=== PATIENT | male | born 1965 | race African-American/Black ===

== ENCOUNTER 2020-04-24 05:38 | Emergency (ER) | payer SELFPAY ==
[~2020-04-24] VITALS: Ht 167.6 cm; Wt 102.1 kg
[2020-04-24] MEDS ORDERED: ORPHENADRINE CITRATE 30 MG/ML VIAL IM ONE (05:45)
[2020-04-24] MEDS ORDERED: TRAMADOL HCL 50 MG TAB PO ONE (06:00)
--- NOTE | 2020-04-24 06:13 | Emergency Department Note ---
History of Present Illnes History of Present Illness Chief Complaint: Back Pain History of Present Illness This is a 54 year old male PRESENTS TO ED WITH PAIN TO RIGHT LOWER BACK X3 WEEKS; PT HAS BEEN SEEN BY PCP FOR SAME STATED PAIN, HAD CT ABD/PELVIS WITH NO SIGNIFICANT FINDINGS, WAS RX'D GABAPENTIN AND FLEXERIL; PT DENIES ANY DIFFICULTY URINATING; REPORTS PAIN WITH BENDING OVER, ROLLING OVER AND WHEN HE HAS A BOWEL MOVEMENT . Historian: Patient Arrival Mode: Car [employer] Service Manager Required: No Onset (how long ago): week(s) (3) Location: RIGHT LOW BACK/SIDE Quality: PAIN Radiation: Reports non-radiation Severity: severe Onset quality: sudden Duration (how long): week(s) (3) Timing of current episode: constant Progression: worsening Chronicity: chronic Context: Denies recent illness, Denies recent surgery, Denies trauma/injury Relieving factors: none Exacerbating factors: movement Associated symptoms: Reports denies other symptoms Treatments prior to arrival: none (JUSTUS LOPEZ MD) Past Medical/Family History Physician Review I have reviewed the patient's past medical and family history. Any updates have been documented here. (JUSTUS LOPEZ MD) Past Medical History Recent Fever: No Clinical Suspicion of Infectio: No New/Unexplained Change in Ment: No Past Medical History: Hypertension, GERD, Chronic Back Pain, Osteoarthritis Past Surgical History: Back Surgery (JUSTUS LOPEZ MD) Social History Smoking Cessation: Never Smoker Counseling Performed: No Alcohol Use: None Any Illegal Drug Use: No (JUSTUS LOPEZ MD) Other Any Pre-Existing Lines (PICC,: No (JUSTUS LOPEZ MD) Review of Systems Review of Systems Constitutional: Reports no symptoms EENTM: Reports no symptoms Cardiovascular: Reports no symptoms Respiratory: Reports no symptoms Gastrointestinal: Reports no symptoms Genitourinary: Reports no symptoms Musculoskeletal: Reports as per HPI Integumentary: Reports no symptoms Neurological: Reports no symptoms Psychological: Reports no symptoms Endocrine: Reports no symptoms Hematological/Lymphatic: Reports no symptoms (JUSTUS LOPEZ MD) Physical Exam Related Data Allergies: Coded Allergies: NSAIDS (Non-Steroidal Anti-Inflamma (Verified Allergy, Intermediate, 04/24/20) acetaminophen (Verified Allergy, Intermediate, 04/24/20) ibuprofen (Verified Allergy, Intermediate, 04/24/20) iodine (Verified Allergy, Intermediate, 04/24/20) Triage Vital Signs Vital Signs Date Time Temp Pulse Resp B/P (MAP) Pulse Ox O2 Delivery O2 Flow Rate FiO2 04/24/20 05:42 98.2 122 19 175/124 100 Room Air Vital signs reviewed: Yes (JUSTUS LOPEZ MD) Physical Exam CONSTITUTIONAL Constitutional: Present well-developed, Present well-nourished, Present distressed (MILD) HENT HENT: Present normocephalic, Present atraumatic, Present oropharynx clear/moist, Present nose normal HENT L/R: Present left ext ear normal, Present right ext ear normal EYES Eyes: Reports PERRL, Reports conjunctivae normal NECK Neck: Present ROM normal PULMONARY Pulmonary: Present effort normal, Present breath sounds normal CARDIOVASCULAR Cardiovascular: Present regular rhythm, Present heart sounds normal, Present capillary refill normal, Present tachycardia (115) GASTROINTESTINAL Abdominal: Present soft, Present nontender, Present bowel sounds normal GENITOURINARY Genitourinary: Present exam deferred SKIN Skin: Present warm, Present dry MUSCULOSKELETAL Musculoskeletal: Present ROM normal, Present tenderness (RIGHT LOWER BACK MILD TO PALPTAION) NEUROLOGICAL Neurological: Present alert, Present oriented x 3, Present no gross motor or sensory deficits PSYCHOLOGICAL Psychological: Present mood/affect normal, Present judgement normal (JUSTUS LOPEZ MD) Assessment & Plan Medical Decision Making MDM PT WITH RIGHT BACK/SIDE PAIN FOR THREE WEEKS, CT ABD/PELVIS WO, UA ORDERED TO EVAL FOR HEMATURIA, UTI, KIDNEY STONE NORFLEX 60 MG IM ORDERED TRAMADOL 50MG PO ORDERED [address] PERALTA CT AND UA PENDING (JUSTUS LOPEZ MD) Reassessment Reassessment PT SEEN AND EXAMINED, HAS 3 WEEKS OF RIGHT SIDED PAIN, EXAM UNREMARKABLE EXCEPT POINT TENDERNESS OVER RIGHT LOWER RIBS AND ICS's, ABDOMEN EXAM BENIGN, NO CVAT, UA NEGATIVE, CT NEGATIVE DC WITH TRAMADOL #12, PREDNISONE 40 MG PO X 5 DAYS, LIDODERM PATCHES (LEAH PERALTA MD) Assessment & Plan Final Impression: (1) Back pain (JUSTUS LOPEZ MD) Final Impression: (1) Back pain (2) Costochondritis (LEAH PERALAT MD) Depart Disposition: HOME, SELF-CARE Last Vital Signs Date Time Temp Pulse Resp B/P (MAP) Pulse Ox O2 Delivery O2 Flow Rate FiO2 04/24/20 05:42 98.2 122 19 175/124 100 Room Air (JUSTUS LOPEZ MD) Medications in the ED Orphenadrine Citrate 60 mg ONCE ONCE IM Last administered on 04/24/20at 05:50; Admin Dose 60 MG; Start 04/24/20 at 05:45; Stop 04/24/20 at 05:47; Status DC Tramadol HCl 50 mg ONCE ONCE PO Last administered on 04/24/20at 05:50; Admin Dose 50 MG; Start 04/24/20 at 06:00; Stop 04/24/20 at 06:01; Status DC (JUSTUS LOPEZ MD) JUSTUS LOPEZ MD Apr 24, 2020 06:13 LEAH PERALTA MD Apr 24, 2020 08:01
--- OUTSIDE RECORDS SUMMARY | 2020-04-24 06:24 | XMS REPORT | Continuity of Care Document ---
Author Author [employer] LOUISE [place] [employer] Address Unknown Phone Unavailable Care Team Providers Care Order Entry Clerk Name Role Phone [employer] Unavailable Un available Problems Problem Status Onset Date Classification Date Reported Comments Source Encounter to establish care with new doctor Active Diagnosis 10/15/2016 Enayet Rahim Migraine with aura and without status mi grainosus, not intractable Active Prob pedro 12/10/2016 Enayet Rahim YURI (obstructive sleep apnea) Active Problem Enayet Rahim Neuropathy Active Problem 12/10/2016 Enayet Rahim Migraine aura without headache Active Problem Enayet Rahim Essential hypertension Active Problem 12/10/2016 Enayet Rahim Low back pain at multiple sites Active Problem Enayet Rahim 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 Active Prob pedro 12/10/2016 Enayet Rahim 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 Active Problem 12/10/2016 Enayet Rahim Cervical radiculopathy Active Problem 12/10/2016 Enayet Rahim Hearing deficit, bilateral Act micheal Diagnosis 0 10/15/2016 Enayet Rahim Urticaria, chronic Active Diagnosis 10/15/2016 Enayet Rahim Gastroesophageal reflux disease without esophagitis Active Problem 12/09/2016 Enayet Rahim Hatto-edkav-[id number], subsequent encounter Active Diagnosis 12/10/2016 Enayet Rahim Coronary artery disease involving ione heart without angina pectoris, unspecified vessel or lesion type Active Diagnosis 0 12/10/2016 Enayet Rahim Urticaria Active Diagnosis 12/05/2016 Enayet Rahim Medications Medication Details Route Status Patient Instructions Ordering Provider Order Date Source Amoxicillin 1 capsule Orally Active 250 MG Orally every 8 h [facility] 12/04/2016 Enayet Rahim MethylPREDNISolone as directed Orally Active 4 MG Orally As directed [facility] 12/03/2016 Edward Thomason EpiPen 2-Azael as directed Injection Active 0.3 MG/0.3ML Injection as directed [facility] 11/04/2016 Edward Thomason Omeprazole 1 capsule Orally Active 40 MG Orally Once a day [facility] 10/31/2016 Edward Thomason Losartan Potassium 1 tablet Orally Active 100 MG Orally Once a day [facility] 10/31/2016 Edward Thomason Ativan 1 tablet as needed Orally Active 1 MG Orally Twice a day [facility] 11/17/2014 Edward Thomason Lipitor 1 tablet Orally Active 20 mg Orally Once a day [facility] 11/08/2014 Edward Thomason Nasacort AQ 1 puff in each nos tril Nasally Active 55 MCG/ACT Nasally Once a day [facility] 09/28/2014 Edward Oseguerahim Nasacort AQ 1 puff in each nos tril Nasally Active 55 MCG/ACT Nasally Once a day [facility] 07/28/2014 Edward Thomason HydrOXYzine HCl 1 tablet Orally Active 25 MG Orally Three time s a day [facility] 04/04/2014 Edward Thomason Diazepam 1 tablet as needed Orally Active 5 MG Orally Once a day [facility] 11/15/2013 Edward Thomason Ambien 1 tablet at bedtime Orally Active 5 MG Orally Once a day [facility] 09/13/2013 Edward Royalm Diltiazem HCl ER 1 capsule on an empty stomach in the morning Orally Active 240 MG Orally Once a day [facility] 08/25/2013 Entrang Oseguerahim Diltiazem HCl ER 1 capsule on an empty stomach in the morning Orally Active 360 Orally Once a day [facility] 08/25/2013 Edward Thomason Clonidine HCl 1 tablet at bedt demetri Orally Active 0.1 MG Orally twice a day (bid) [facility] 06/30/2013 Edward Royalm EPINEPHrine HCl (Anaphylaxis) as directed Intramuscular Active 0.15 MG/0.3ML (1:2000) Intramuscular as needed (prn) [facility] 06/30/2013 Enkileyet Rahim EPINEPHrine HCl (Anaphylaxis) as directed Intramuscular Active 0.15 MG/0.3ML (1:2000) Intramuscular as needed (prn) [facility] 06/30/2013 Edward Thomason HydrOXYzine HCl 1 tablet Orally Active 25 MG Orally twice a da y (bid) [facility] 04/26/2013 T[facility] Lisinopril 1 tablet Orally Active 40 MG Orally Once a day [facility] 03/01/2013 [facility] Hydrochlorothiazide 1 tablet Orally Active 25 MG Orally Once a day [facility] Doxepin HCl 2 tablet at bedtime Orally Active 75 MG Orally Once a day [facility] Triamterene-HCTZ 1 capsule Orally Active 37.5-25 MG Orally once a day [facility] Atenolol 1 tablet Orally Active 50 MG Orally Once a day [facility] Ranexa 1 tablet Orally Active 1000 MG Orally Twice a day [facility] Viky [facility] Nitro-Dur 1 patch to skin mony ve after 12 hours Transdermal Active 0.2 MG/HR Transdermal Once a day [facility] Aspirin 1 tablet Orally Active 81 MG Orally Once a day [facility] Viky esvin [facility] Atorvastatin Calcium 1 tablet Orally Active 40 MG Orally Once a day [facility] Omeprazole 1 capsule Orally Active 20 mg Orally twice a da y (bid) [facility] Plavix 1 tablet Orally Active 75 MG Orally Once a day [facility] Propranolol HCl 0.5 tablet Orally Active 60 MG Orally once a day [facility] Edward Royal Allergies, Adverse Reactions, Alerts Substance Category Reaction Severity Reaction type Status Date Reported Comments Source Vicodin Adverse Reaction Info Not Available Adverse Reaction Active 10/31/2016 Edward Thomason Tylenol Adverse Reaction Info Not Available Adverse Reaction Active 10/31/2016 Edward Thomason Tramadol & Dietary Manage Prod Adverse Reaction Info Not Available Adverse Reaction Active 10/31/2016 Edward Royal Morphine Sulfate Adverse React ion Info Not Available Adverse Reaction Active 10/31/2016 Edward Thomason Ibuprofen Adverse Reaction Info Not Available Adverse Reaction Active 10/31/2016 Edward Thomason Aspirin Adverse Reaction Info Not Available Adverse Reaction Active 10/31/2016 Edward Oseguerainmaria Immunizations No Data Provided for This Section Results No Data Provided for This Section Pathology Reports No Data Provided for This Section Diagnostic Reports No Data Provided for This Section Consultation Notes No Data Provided for This Section Discharge Summaries No Data Provided for This Section History and Physicals No Data Provided for This Section Vital Signs Vital Sign Value Date Comments Source Weight 257 12/03/2016 Enayet Rahim Height 66 0 12/03/2016 Enayet Rahim Temperature Oral (F) 98.0 F 12/03/2016 Enayet Rahim Diastolic (mm Hg) 100 12/03/2016 Enayet Rahim Systolic (mm Hg) 167 12/03/2016 Enayet Rahim Weight 254 11/20/2016 Enayet Rahim Height 66 0 11/20/2016 Enayet Rahim Temperature Oral (F) 98.0 F 11/20/2016 Enayet Rahim Diastolic (mm Hg) 90 11/20/2016 Enayet Rahim Systolic (mm Hg) 145 11/20/2016 Enayet Rahim Weight 249 10/31/2016 Enayet Rahim Height 66 0 10/31/2016 Enayet Rahim Temperature Oral (F) 97.9 F 10/31/2016 Enayet Rahim Diastolic (mm Hg) 91 10/31/2016 Enayet Rahim Systolic (mm Hg) 165 10/31/2016 Enayet Rahim Weight 201 10/13/2016 Enayet Rahim Height 66 0 10/13/2016 Enayet Rahim Temperature Oral (F) 97.6 F 10/13/2016 Enayet Rahim Diastolic (mm Hg) 93 10/13/2016 Enayet Rahim Systolic (mm Hg) 136 10/13/2016 Enayet Rahim Encounters Location Location Details Encounter Type Encounter Number Reason For Visit Attending Provider ADM Date DC Date Status Source Edward Thomason MD, PA lower lumbar pain [id number] 10/13/19 17 10/13/2016 Edward Thomason MD, PA lower lumbar pain [id number] 10/13/19 17 10/13/2016 Edward Thomason MD, PA Unknown [id number] 10/21/19 17 10/21/2016 Edward Thomason Procedures No Data Provided for This Section Assessment and Plan No Data Provided for This Section Plan of Care No Data Provided for This Section Social History Social History Date Source Social History ElementQualifiersDate Rep orted Tobacco Use: . Are you a: never smoker Oct 13, 2016 Do you have pets? . Status: Yes, Type: Turtle(s) Oct 13, 2016 Marital Status: . Oct 13, 2016 Caffeine intake? . Status: Yes, What type: Chocolate Oct 13, 2016 Do you exercise? . Answer: Yes, Type: walking Oct 13, 2016 Do you drink alcohol? . Status: Yes, Type: Liquor Oct 13, 2016 Travel outside [place]: . no Oct 13, 2016 10/13/2016 Edward Thomason Family History No Data Provided for This Section Advance Directives No Data Provided for This Section Functional Status No Data Provided for This Section
--- OUTSIDE RECORDS SUMMARY | 2020-04-24 06:24 | XMS REPORT | Continuity of Care Document ---
Author Author [facility] t Organization [facility] Address [address] [place] [address] Phone Unavailable Care Team Providers Care Refrigeration Tech Name Role Phone Jerman KATZ, Clare Connor PCP Jerman KATZ, Clare Connor Attphys Doctor, [facility] Attphys Unavailable Meri KATZ, Jeremias Attphys Stephanie KATZ, T Abner Attphys Klaudia ARMENDARIZ, [facility] Attphys Unavailable Armani KATZ, Rocky Wren Attphys Dori SIMMS, R Chace Attphys Payers Payer Name Policy Type Policy Number Effective Date Expiration Date S sue [place] [employer] [employer] [employer] [id number], [place] [address] xxxxxx 2019 00:00:00 2020 23:59:59 [facility] [employer]AN[employer]CIAL ASSISTANCE PROGRAMxxx [id number] [place] [address] xxxxxx 2019 00:00:00 2021-0 3-05 23:59:59 [facility] Problems Condition Name Condition Details Condition Category Status Onset Date Resolution Date Last Treatment Date Treating Clinician Comments Source Diet-controlled diabetes mellitus Diet-controlled diabetes melli tus Disease Active 2018-05-11 00:00:00 [facility] Hip impingement syndrome Hip impingement syndrome Disease Acti ve 2018-05-11 00:00:00 [facility] Essential hypertension, benign Essential hypertension, benign Disea se Active 2017-03-25 00:00:00 [facility] ealth Type 2 diabetes mellitus without complic ation, without long-term current use of insulin Type 2 diabetes mellitus without complic ation, without long-term current use of insulin Disease Active 2017-03-25 00:00:00 [facility] HTN (hypertension) HTN (hypertension) Disease Active 2012-10-14 00:00:0 0 [facility] Neck pain Neck pain Disease Active 2011-04-08 00:00:00 [facility] Encounter to establish care with new doctor Encounter to establish care with new doctor Active Diagnosis 10/15/2016 Edward Royalm Diagnosis Active 2016-10-15 05:14:15 Mitra Jara Migraine with aura and without status migrainosus, not intractable Migraine with aura and without status migrainosus, not intractable Active Problem 12/10/2016 Enayet Rahim Problem Active 2016-12-10 04:1 1:03 Karthik Jara YURI (obstructive sleep apnea) YURI (obstructive sleep apnea) Active Problem 12/10/2016 Enayet Rahim Problem Active 2016-12-10 04:11:03 Karthik Jara Neuropathy Neur opathy Active Problem 12/10/2016 Enayet Rahim Problem [facility] 2016-12[facility]10 [facility] Essential hypertension Esse ntial hypertension Active Problem 12/10/2016 Enayet Rahim Problem Active 2016-12-10 04:11:03 Karthik Jara Low back pain at multiple sites Low back pain at multiple sites Active Problem 12/10/2016 Enayet Rahim Problem Active 2016-12-10 04:11:03 Karthik Jara Sciatica of right side associated with disorder of lum bar spine Sciatica of right side associated with disorder of lumbar spine Active Problem 12/10/2016 Enayet Rahim Problem Active 2016-12-10 04:1 1:03 Karthik Jara 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 Active Problem 12/10/2016 Edward Thomason Problem Active 2016-12-10 04:11:03 Karthik Jara Cervical radiculopathy Cerv ical radiculopathy Active Problem 12/10/2016 Edward Thomason Problem Active 2016-12-10 04:11:03 Karthik Marek Hearing deficit, bilateral Hea ring deficit, bilateral Active Diagnosis 10/15/2016 Edward Thomason Diagnosis Active 2016-10-15 05:14:15 Karthik Marke Urticaria, chronic Urti caria, chronic Active Diagnosis 10/15/2016 Edward Thomason Diagnosis Active 2016-10-15 05:14:15 Karthik Marek Gastroesophageal reflux disease without esophagitis Gastroesophageal reflux disease without esophagitis Active Problem 12/09/2016 Edwrad Thomason Problem Active 2016-12-09 [id number], subsequent encounter Kuump-vibgx-ctuomjfer, subsequent encounter Active Diagnosis 12/10/2016 Edward Thomason Diagnosis Active 2016-12-10 04:11:03 Karthik [place] Coronary artery disease involving [place] heart without angina pectoris, unspecified vessel or lesion type Coronary artery disease involving [place] heart without angina pectoris, unspecified vessel or lesion type Active Diagnosis 12/10/2016 Edward Thomason Diagnosis Active 2016-12-10 04:11:03 [facility] Urticaria Urti caria Active Diagnosis 12/05/2016 Edward Thomason Diagnosis Active 2016-12-05 04:10:09 [facility] Knight's esophagus Knight's esophagus Disease Active [facility] Allergies, Adverse Reactions, Alerts Allergy Name Allergy Type Status Severity Reaction(s) Onset Date Inacti ve Date Treating Clinician Comments Source NSAIDS (Non-Steroidal Anti-Inflamma DA Active U 2020-01-25 0 00:00:00 [facility] morphine DA Active U 2020-02-21 00:00:00 [facility] acetaminophen DA Active U 2020-02-21 00:00:00 [facility] ibuprofen DA Active U 2020-02-21 00:00:00 [facility] Celecoxib Propensity to adverse reactions to drug Active Rash 2018-12-06 00:00:00 [facility] Vicodin Vicodin Active Info Not Available 2016-10-31 00:00:00 [facility] Tylenol Tylenol Active Info Not Available 2016-10-31 00:00:00 [facility] Tramadol & Dietary Manage Prod Tramadol & Dietary Manage Prod Activ e Info Not Available 2016-10-31 00:00:00 [facility] Morphine Sulfate Morphine Sulfate Active Info Not Avai lable 2016-10-31 00:00:00 [facility] Ibuprofen Ibuprofen Active Info Not Available 2016-10-31 00:00:00 [facility] Aspirin Aspirin Active Info Not Available 2016-10-31 00:00:00 [facility] Lisinopril Propensity to adverse reactions to drug Active 2011-05-01 00:00:00 DRYNESS [facility] Contrast Propensity to adverse reactions to drug Active Hives 2010-09-15 00:00:00 [facility] Nsaids (Non-Steroidal Anti-Inflammatory Drug) Propensi ty to adverse reactions to drug Active Hives 2010-09-15 00:00:00 Hayden is [facility] Acetaminophen Propensity to adverse reactions to drug Active Hives 2010-09-15 00:00:00 Pt states he had to use an epipe n [facility] Family History Family Member Diagnosis Comments Start Date Stop Date Source Natural daughter Leukemia [facility] Maternal aunt Cancer [facility] th Maternal aunt [facility] Maternal grandmother Heart Hayden is [facility] Natural mother Arthritis [facility] Natural mother Hypertension [facility] Other Bone cancer [facility] Social History Social Habit Start Date Stop Date Quantity Comments Source Sex Assigned At [facility] Exposure to SARS-CoV-2 (event) Not sure [facility] Alcohol intake 2020-02-28 00:00:00 2020-02-28 00:00:00 Current non-drinker of alcohol (finding) [facility] SDOH Food Worry 2018-03-30 00:00:00 2018-03-30 00:00:00 1 [facility] SDOH Food Scarcity 2018-03-30 00:00:00 2018-03-30 00:00:00 1 [facility] TobaccoUse: 2016-10-13 00:00:00 2016-10-13 00:00:00 [facility] Smoking Status Start Date Stop Date Source Never smoker [facility] Medications Ordered Medication Name Filled Medication Name Start Date Stop Da te Current Medication? Ordering Clinician Indication Dosage Frequency Signature (SIG) Comments Components Source gabapentin (NEURONTIN) 100 mg capsule 2020-04-17 00:00:00 Yes Chest wall pain 100mg Take 1 capsule by mouth 3 times daily. [facility] candesartan (ATACAND) 4 mg tablet 2020-04-01 00:00:00 Yes Essential hypertension 8mg QD Take 2 tablets by mouth daily. [facility] hydrOXYzine (ATARAX) 25 mg tablet 2020-02-29 00:00:00 Yes Neck pain Take 1 tablet by mouth 30 minutes before MRI. [facility] methocarbamoL (ROBAXIN-750) 750 mg tablet 2020-02-28 00:00:0 0 Yes Neck pain 750mg Take 1 tablet by mouth 3 times daily as needed for Pain. [facility] mometasone (NASONEX) 50 mcg/actuation nasal spray 2020-02-28 00:00:00 Yes Runny nose 1{spray} QD Use 1 spray in each nostril daily. [facility] hydrOXYzine (ATARAX) 25 mg tablet 2020-02-28 00:00:00 2019 00:00:00 No Neck pain Take 30 minutes before MRI. [facility] atenoloL (TENORMIN) 50 mg tablet 2020-02-20 00:00:00 Yes Essential hypertension 50mg QD Take 1 tablet by mouth daily. [facility] omeprazole (PRILOSEC) 20 mg delayed release capsule 02-19 00:00:00 Yes Knight's esophagus without dysplasia 20mg QD Take 1 ca psule by mouth daily. [facility] buPROPion (WELLBUTRIN XL) 150 mg extended release tablet 2020-02-20 00:00:00 Yes YURI (obstructive sleep apnea) 150mg Take 1 tablet by mouth every morning. [facility] hydrOXYzine (ATARAX) 25 mg tablet 2020-02-13 00:00:00 Yes Chronic urticaria 25mg Take 1 tablet by jian 3 times daily as needed for Itching or Anxiety. [facility] atorvastatin (LIPITOR) 40 mg tablet 2020-02-13 00:00:00 Yes Hyperlipidemia, unspecified hyperlipidemia type 40mg Take 1 tablet by mouth at bedtime nightly For cholesterol. [facility] amLODIPine (NORVASC) 5 mg tablet 2020-01-19 00:00:00 Yes Essential hypertension 5mg QD Take 1 tablet by mouth daily. [facility] metFORMIN (GLUCOPHAGE) 500 mg tablet 2020-01-19 00:00:00 Yes Type 2 diabetes mellitus without complication, without long-term current use of insulin 500mg QD Take 1 tablet by mouth daily (with breakfast). [facility] clopidogreL (PLAVIX) 75 mg tablet 2020-01-19 00:00:00 Yes Coronary artery disease due to lipid rich plaque 75mg QD Take 1 tablet by mouth da brian. [facility] nitroGLYCERIN (NITRO-DUR) 0.2 mg/hr patch 2020-01-19 00:00:0 0 Yes Coronary artery disease due to lipid rich plaque 1{patch} QD Apply 1 Patch to skin as directed daily. [facility] mometasone (NASONEX) 50 mcg/actuation nasal spray 2020-01-19 00:00:00 2020-02-28 00:00:00 No Runny nose 1{spray} QD Use 1 spray in each nostril daily. [facility] atorvastatin (LIPITOR) 40 mg tablet 2020-01-19 00:00:0 0 2020-02-13 00:00:00 No Hyperlipidemia, unspecified hyperlipidemia type 40mg Take 1 tablet by mouth at bedtime nightly For cholesterol. [facility] candesartan (ATACAND) 4 mg tablet 2019-12-21 00:00:00 2019 00:00:00 No Essential hypertension 8mg QD Take 2 tablets by mouth horacio ly. [facility] cetirizine (ZYRTEC) 10 mg tablet 2019-12-05 00:00:00 Yes Chronic urticaria 10mg QD Take 1 tablet by mouth daily. [facility] metFORMIN (GLUCOPHAGE) 500 mg tablet 2019-11-09 00:00: 00 2020-01-18 00:00:00 No Type 2 diabetes mellitus wit hout complication, without long-term current use of insulin 500mg QD Take 1 tablet by mouth daily (with breakfas t). [facility] atenoloL (TENORMIN) 50 mg tablet 2019-10-27 00:00:00 2020-01 00:00:00 No Essential hypertension 50mg QD Take 1 tablet by mouth daily. [facility] mometasone (NASONEX) 50 mcg/actuation nasal spray 2019-10-18 00:00:00 2020-01-19 00:00:00 No Runny nose 1{spray} QD Use 1 Loving by each nostril route daily. [facility] zolpidem (AMBIEN) 10 mg Tab 2019-10-10 00:00:00 Ye s PTSD (post-traumatic stress disorder) 10mg Take 1 tablet by jian th nightly at bedtime as needed for Insomnia Need to see psychiatry for more refill. 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 [facility] buPROPion (WELLBUTRIN XL) 150 mg extended release tablet 2019-10-10 00:00:00 2020-02-20 00:00:00 No YURI (obstructive sleep apnea) 150mg Take 1 tablet by mouth every morning. [facility] ergocalciferol (VITAMIN D2) 1,250 mcg (50,000 unit) capsule 2019-10-04 00:00:00 Yes Vitamin D deficiency [id number] Take 1 cap latricia by mouth weekly. [facility] cloNIDine HCl (CATAPRES) tablet 0.1 mg 6 10:45:00 2019-09-29 10:54:00 No Type 2 diabetes with complication .1mg [facility] tropicamide (MYDRIACYL) 0.5 % ophthalmic solution 2019-09-29 00:00:00 2020-03-28 23:59:00 No Type 2 diabetes with complication 1[dr p] Instill 1 Drop in each eye once as needed for up to 1 dose (for poor retina scan image). [facility] clopidogreL (PLAVIX) 75 mg tablet 2019-09-29 00:00:00 2019 00:00:00 No Coronary artery disease due to lipid rich plaque 75mg QD Take 1 tablet by mouth daily. [facility] amLODIPine (NORVASC) 5 mg tablet 2019-09-29 00:00:00 2019-12 00:00:00 No Essential hypertension 5mg QD Take 1 tablet by mouth daily. [facility] OMEGA-3 FATTY ACIDS (FISH OIL OR) 2019-07-29 10:57:24 Yes Take by mouth. [facility] candesartan (ATACAND) 4 mg tablet 2019-07-29 00:00:00 2019 00:00:00 No Essential hypertension 8mg QD Take 2 tablets by mouth horacio ly. [facility] mometasone (NASONEX) 50 mcg/actuation nasal spray 2019-07-29 00:00:00 2019-10-17 00:00:00 No Runny nose 1{spray} QD Use 1 Loving by each nostril route daily. [facility] tropicamide (MYDRIACYL) 0.5 % ophthalmic solution 2019-07-29 00:00:00 2019-07-29 23:59:00 No Type 2 diabetes josselyn itus without complication, without long-term current use of insulin 1[drp] Instill 1 Drop in each eye once as needed for up to 1 dose (for poor retina scan image). [facility] cetirizine (ZYRTEC) 10 mg tablet 2019-07-08 00:00:00 2019-11 00:00:00 No Chronic urticaria 10mg QD Take 1 tablet by mouth daily. [facility] atorvastatin (LIPITOR) 40 mg tablet 2019-07-06 00:00:0 0 2020-01-18 00:00:00 No Hyperlipidemia, unspecified hyperlipidemia type 40mg Take 1 tablet by mouth at bedtime nightly For cholesterol. [facility] candesartan (ATACAND) 4 mg tablet 2019-07-06 00:00:00 2018 00:00:00 No Essential hypertension 4mg QD Take 1 tablet by mouth harris dotson [facility] cetirizine (ZYRTEC) 10 mg tablet 2019-06-02 00:00:00 2019-06 00:00:00 No Chronic urticaria 10mg QD Take 1 tablet by mouth daily. [facility] metFORMIN (GLUCOPHAGE) 500 mg tablet 2019-05-18 00:00: 00 2019-11-08 00:00:00 No Type 2 diabetes mellitus wit hout complication, without long-term current use of insulin 500mg QD Take 1 tablet by mouth daily (with breakfas t). [facility] mupirocin calcium (BACTROBAN) 2 % topical cream 2019-04-22 0 0:00:00 Yes Skin lesion Q.5D Apply to affected area 2 times daily. [facility] acetaminophen-codeine (TYLENOL #3) 300-30 mg per tablet 2019-04-22 00:00:00 2019-05-02 23:59:00 No Pain 1{tbl} Take 1 tablet by mouth 2 times daily as needed for up to 10 days [facility]. [facility] clind[facility] (CLEOCIN HCL) 300 mg capsule 2019-03 00:00:00 2019-04-29 23:59:00 No Skin lesion 300mg Take 1 capsul e by mouth 3 times daily for 7 days. [facility] cetirizine (ZYRTEC) 10 mg tablet 2019-04-21 00:00:00 2019-05 00:00:00 No Chronic urticaria 10mg QD Take 1 tablet by mouth daily. [facility] atenolol (TENORMIN) 50 mg tablet 2019-04-07 00:00:00 2019-10 00:00:00 No Essential hypertension 50mg QD Take 1 tablet by mouth daily. 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 [facility] CPAP Device 2019-03-18 00:00:00 Yes YURI (obstruct micheal sleep apnea) Use device as directed. Date of Study: 12/22/2017Diagnosis: YURI [id number] SaO2 eli: 85%CPAP Pressure: 12 cm H2O with heated humidifier: Yes with mask (fit to patient) and supplies as needed: Yes; prefers full maskChin Strap: No. [facility] buPROPion (WELLBUTRIN XL) 150 mg extended release tablet 2019-03-18 00:00:00 2019-10-09 00:00:00 No YURI (obstructive sleep apnea) 150mg Take 1 tablet by mouth every morning. [facility] zolpidem (AMBIEN) 10 mg Tab 2019-03-18 00:00:00 2019-10-09 0 0:00:00 No PTSD (post-traumatic stress disorder) 10mg Take 1 tablet by mouth nightly at bedtime as needed for Insomnia. [facility] ealt Miscellaneous Medical Supply Mis 2019-02-25 00:00:00 Yes Primary osteoarthritis of both hips by [facility].(Non -Drug; Combo Route) route Permanent Handicap sticker. [facility] cyclobenzaprine (FLEXERIL) 10 mg tablet 00:00:00 2020-02-28 00:00:00 No Spasm of muscle 10mg Take 1 ta blet by mouth 2 times daily as needed for Muscle Spasms. [facility] candesartan (ATACAND) 4 mg tablet 2019-02-15 00:00:00 2018 00:00:00 No Essential hypertension 4mg QD Take 1 tablet by mouth harris y. [facility] pramipexole (MIRAPEX) 0.125 mg tablet 2019-02-07 00:00:00 Yes Restless leg syndrome, uncontrolled .125mg Take 1 tablet by mouth 3 times horacio ly. [facility] omalizumab (XOLAIR) 150 mg injection 2019-02-07 00:00:00 Yes Chronic urticaria 150mg Inject 1.2 mL under the skin every month. [facility] hydrOXYzine (ATARAX) 25 mg tablet 2019-02-07 00:00:00 2019 00:00:00 No 25mg Take 1 tablet by mouth 3 times daily as needed for Itching or Anxiety. [facility] clopidogrel (PLAVIX) 75 mg tablet 2019-02-07 00:00:00 2019 00:00:00 No Coronary artery disease due to lipid rich plaque 75mg QD Take 1 tablet by mouth daily. [facility] azaTHIOprine (IMURAN) 50 mg tablet 2019-02-07 00:00:00 00:00:00 No Chronic urticaria 50mg Q.5D Take 1 tablet by mouth 2 times d aily. [facility] atorvastatin (LIPITOR) 40 mg tablet 2019-02-03 00:00:0 0 2019-07-05 00:00:00 No Hyperlipidemia, unspecified hyperlipidemia type 40mg Take 1 tablet by mouth at bedtime nightly For cholesterol. [facility] lancets 28 gauge 2018-12-10 00:00:00 Yes Type 2 diabetes mellitus without complication, without long-term current use of insulin Use 2 times weekly as directed. [facility] nitroGLYCERIN (NITRO-DUR) 0.2 mg/hr patch 12-06 00:00:00 2020-01-19 00:00:00 No Coronary artery disease due to lipid rich plaqu e 1{patch} QD Apply 1 Patch to skin as directed daily. [facility] losartan (COZAAR) 100 mg tablet 2018-12-06 00:00:00 00:00:00 No Essential hypertension 100mg QD Take 1 tablet by mouth daily. [facility] azaTHIOprine (IMURAN) 50 mg tablet 2018-12-04 00:00:00 Yes Chronic urticaria 50mg QD Take 1 tablet by mouth daily for 30 days. [facility] cycloSPORINE modified (NEORAL) 100 mg capsule 20 12-10-07 00:00:00 2019-09-29 00:00:00 No Hives 200mg Q.5D Take 2 capsule s (200 mg total) by mouth 2 times daily [facility] chlorhexidine (PERIDEX) 0.12 % mouth wash 08-27 00:00:00 2019-09-29 00:00:00 No Active dental caries Swis h with 1/2 oz of solution in mouth for 30 seconds and spit. Use twice daily.. [facility] 2018-08-09 00:00:00 Yes Arthralgia, unspecified joint by [facility].(Non-Drug; C ombo Route) route Temporary handicap sticker. [facility] metFORMIN (GLUCOPHAGE) 500 mg tablet 2018-08-04 00:00: 00 2019-05-17 00:00:00 No Type 2 diabetes mellitus wit hout complication, without long-term current use of insulin 500mg QD Take 1 tablet by mouth daily (with breakfas t). [facility] ciclesonide (ZETONNA) 37 mcg/actuation nasal HFA inhaler 2018-06-10 00:00:00 2019-07-29 00:00:00 No Allergic cough 1{spray} QD U se 1 Loving in each nostril daily. [facility] blood glucose (PRECISION XTRA TEST STRIPS) test strips 2018-05-13 00:00:00 Yes Type 2 diabetes mellitus wit hout complication, without long-term current use of insulin 1{each} Check blood glucose 2 times weekly [facility] polyethylene glycol (GOLYTELY) 236-22.74-6.74 -5.86 gram ora l solution 2018-03-30 00:00:00 Yes Heme positive stool Add lukewarm drinking water to the fill sonia (4 liters) and shake. Drink as directed by your doctor.. [facility] levothyroxine (SYNTHROID) 25 mcg tablet 2018-03-30 00:00:00 Yes Hypothyroidism, unspecified type 25ug QD Take 1 tablet by mouth da brian. [facility] Miscellaneous Medical Supply [facility] 2017-12-08 00:00:00 Ye s Frequent falls [employer] [address] [place]. [id number]. [facility] polyethylene glycol (GOLYTELY) 236-22.74-6.74 -5.86 gram ora l solution 2017-08-29 00:00:00 Yes Occult blood positive stool Add lukewarm drinking water to the fill sonia (4 liters) and shake. Drink as directed by your doctor.. [facility] blood glucose (PRECISION XTRA TEST STRIPS) test strips 2017 00:00:00 Yes Type 2 diabetes mellitus wit hout complication, without long-term current use of insulin Use 2 times weekly ( once per day on Thu,) to test blood sugar. [facility] blood glucose meter 2017-03-25 00:00:00 Yes Type 2 diabetes mellitus without complication, without long-term current use of insulin Use as directed.. [facility] hydrOXYzine (ATARAX) 25 mg tablet 2017-03-16 00:00:00 Yes Hives 25mg Take 1 tablet by mouth 3 times daily as needed for up to 10 days for Itching. [facility] Doxepin HCl 2016-12-10 04:11:03 Yes Maty Chawla 2 tablet at bedtime [facility] Triamterene-HCTZ 2016-12-10 04:11:03 Yes Maty Chawla 1 capsule [facility] Atenolol 2016-12-10 04:11:03 Yes Matyheath Chawla 1 t ablet [facility] Ranexa 2016-12-10 04:11:03 Yes Matyheath Barbourwar 1 tab let [facility] Nitro-Dur 2016-12-10 04:11:03 Yes Maty Barbourwar 1 patch to skin remove after 12 hours [facility] Aspirin 2016-12-10 04:11:03 Yes Maty Denton 1 ta blet [facility] Atorvastatin Calcium 2016-12-10 04:11:03 Yes Maty Barbourwar 1 tablet [facility] Plavix 2016-12-10 04:11:03 Yes Maty Chawla 1 tab let [facility] Propranolol HCl 2016-12-05 04:10:09 Yes Maty Barbourwar 0.5 tablet [facility] Amoxicillin 2016-12-04 00:00:00 Yes Maty Denton 1 capsule [facility] MethylPREDNISolone 2016-12-03 00:00:00 Yes Maty Denton as directed [facility] EpiPen 2-Azael 2016-11-04 00:00:00 Yes Maty Denton as directed [facility] Omeprazole 2016-10-31 00:00:00 Yes Maty Denton 1 capsule [facility] Losartan Potassium 2016-10-31 00:00:00 Yes Maty Denton 1 tablet [facility] Hydrochlorothiazide 2016-10-15 05:14:15 Yes Maty Denton 1 tablet [facility] Omeprazole 2016-10-15 05:14:15 Yes Maty Denton 1 capsule [facility] Ativan 2014-11-17 00:00:00 Yes Maty Denton 1 tab let as needed [facility] Lipitor 2014-11-08 00:00:00 Yes Maty Denton 1 ta blet [facility] Nasacort AQ 2014-09-28 00:00:00 Yes Maty Denton 1 puff in each nostril [facility] Nasacort AQ 2014-07-28 00:00:00 Yes Maty Denton 1 puff in each nostril [facility] HydrOXYzine HCl 2014-04-04 00:00:00 Yes Maty Denton 1 tablet [facility] Diazepam 2013-11-15 00:00:00 Yes Maty Denton 1 t ablet as needed [facility] Ambien 2013-09-13 00:00:00 Yes Maty Denton 1 tab let at bedtime [facility] Diltiazem HCl ER 2013-08-25 00:00:00 Yes Maty Denton 1 capsule on an empty stomach in the morning [facility] rmann Diltiazem HCl ER 2013-08-25 00:00:00 Yes Maty Denton 1 capsule on an empty stomach in the morning [facility] rmann Clonidine HCl 2013-06-30 00:00:00 Yes Maty Denton 1 tablet at bedtime [facility] EPINEPHrine HCl (Anaphylaxis) 2013-06-30 00:00:00 Yes Stephen Chawla as directed [facility] EPINEPHrine HCl (Anaphylaxis) 2013-06-30 00:00:00 Yes Stephen Chawla as directed [facility] HydrOXYzine HCl 2013-04-26 00:00:00 Yes Maty Denton 1 tablet [facility] Lisinopril 2013-03-01 00:00:00 Yes Maty Denton 1 tablet [facility] Immunizations Ordered Immunization Name Filled Immunization Name Date Status Comments Source Influenza, Injectable, Quadrivalent 2019-07-29 00:00:00 Co mpleted [facility] Influenza, Vaccine<FLUCELVAX>(Multi-Dose) 2018-06-14 00:00 :00 Completed [facility] Influenza Vaccine, Seasonal, Injectable 2017-10-14 00:00:0 0 Completed [facility] PPV 23 (Pneumococcal Polysaccharide 23 Valent) 2017-07 00:00:00 Completed [facility] Tdap Tetanus, diphtheria, acellular pertussis Vaccine 2010-08-24 00:00:00 Completed [facility] Vital Signs Vital Name Observation Time Observation Value Comments Source Systolic blood pressure 2019-09-29 11:26:00 164 mm[Hg] manual lef t arm [facility] Diastolic blood pressure 2019-09-29 11:26:00 90 mm[Hg] manual le ft arm [facility] Heart rate 2019-09-29 10:27:00 106 /min [facility] Body temperature 2019-09-29 10:27:00 36.61 Kalpana [facility] is [facility] Respiratory rate 2019-09-29 10:27:00 18 /min Hayden is [facility] Body height 2019-09-29 10:27:00 167.6 cm [facility] Body weight 2019-09-29 10:27:00 107.502 kg [facility] BMI 2019-09-29 10:27:00 38.25 kg/m2 [facility] Oxygen saturation in Arterial blood by Pulse oximetry 09-22 10:56:00 98 /min [facility] Weight 2016-12-03 15:15:00 [facility] Height 2016-12-03 15:15:00 [facility] Temperature Oral (F) 2016-12-03 15:15:00 98.0 F [facility] Diastolic (mm Hg) 2016-12-03 15:15:00 [facility] [place] Systolic (mm Hg) 2016-12-03 15:15:00 Jamie [facility] Weight 2016-11-20 14:00:00 [facility] Height 2016-11-20 14:00:00 [facility] Temperature Oral (F) 2016-11-20 14:00:00 98.0 F [facility] Diastolic (mm Hg) 2016-11-20 14:00:00 [facility] [place] Systolic (mm Hg) 2016-11-20 14:00:00 Jamie rial [facility] Weight 2016-10-31 14:45:00 [facility] Height 2016-10-31 14:45:00 [facility] Temperature Oral (F) 2016-10-31 14:45:00 97.9 F [facility] Diastolic (mm Hg) 2016-10-31 14:45:00 [facility] [place] Systolic (mm Hg) 2016-10-31 14:45:00 Jamie [facility] [place] Weight 2016-10-13 17:00:00 [facility] Height 2016-10-13 17:00:00 [facility] Temperature Oral (F) 2016-10-13 17:00:00 97.6 F [facility] Diastolic (mm Hg) 2016-10-13 17:00:00 [facility] Systolic (mm Hg) 2016-10-13 17:00:00 Jamie [facility] [place] Procedures Procedure Date / Time Performed Performing Clinician Sourc e IR U/S GUIDED NEEDLE BIOPSY 2020-03-27 12:20:00 Jessica Edouard [facility] DRAIN/INJECT SM JNT/BURSA 2020-03-27 12:20:00 Jessica Edouard [facility] ELECTROLYTES 2020-03-23 13:14:00 Mark Caro [facility] th MAGNESIUM 2020-03-23 13:14:00 Mark Caro [facility] XRAY CHEST 2 VIEWS 2019-10-07 09:03:17 Mark Caro [facility] OPHTHALMOLOGY RETINAL SCAN 2019-10-07 08:35:08 Sonal Brown [facility] OPHTHALMOLOGY RETINAL SCAN 2019-10-07 02:33:07 Mark Caro [facility] FECAL OCCULT BLOOD 2019-10-06 17:46:00 Mark Caro [facility] NEEDLE EMG, 2 EXTREMITIES 2019-09-29 11:59:34 Mark Caro [facility] HIV AG/AB COMBO ROUTINE SCREENING 2019-09-29 11:14:00 Amanda Caro [facility] HEMOGLOBIN A1C 2019-09-29 11:14:00 Mark Caro [facility] MICROALBUMIN / CREATININE URINE RATIO 2019-09-29 11:14:00 Mark Caro [facility] ELECTROLYTES 2019-09-29 11:13:00 Mark Caro [facility] CBC/DIFF 2019-09-29 11:13:00 Mark Caro [facility] GLUCOSE 2019-09-29 11:13:00 Mark Caro [facility] LIPID PROFILE 2019-09-29 11:13:00 Mark Caro [facility] UREA NITROGEN/CREATININE 2019-09-29 11:13:00 Mark Caro [facility] LIVER PROFILE 2019-09-29 11:13:00 Mark Caro [facility] HEPATITIS PANEL 2019-09-29 11:13:00 Mark Caro [facility] CALCIUM 2019-09-29 11:13:00 Mark Caro [facility] VIT D, 25-HYDROXY 2019-09-29 11:13:[address] [facility] CBC 2019-09-29 11:13:00 Mark Caro [facility] ECHG EKG PROC 12 LEAD EKG; TRACING ONLY 2019-09-29 10:57:13 Mark Mcclain [facility] ECHG EKG PROC 12 LEAD EKG; TRACING ONLY 2019-09-22 11:00:05 Chace Meadows [facility] GLUCOSE POC 2019-09-22 10:59:00 Unknown, Provider Raciel Kendrick [facility] Plan of Care Planned Activity Planned Date Details Comments Source Future Scheduled Test 2020-10-07 00:00:00 DM Retinal Exam (Y early) [code = DM Retinal Exam (Yearly)] [facility] Scheduled Test 2020-10-06 00:00:00 Screening for mario gnant neoplasm of colon (procedure) [code = 538779135] [facility] Scheduled Test 2020-09-29 00:00:00 CORONARY ARTERY DI SEASE AGE 18 AND UP [code = CORONARY ARTERY DISEASE AGE 18 AND UP] [facility] Scheduled Test 2020-09-29 00:00:00 Hemoglobin A1c ruby surement (procedure) [code = 58846074] [facility] Scheduled Test 2019-08-27 00:00:00 DM Foot Exam (Year ly) [code = DM Foot Exam (Yearly)] [facility] Encounters Start Date/Time End Date/Time Encounter Type Admission Type Att[facility] Care Department Encounter ID Source 2020-04-11 17:40:00 2020-04-11 17:40:00 Emergency E [facility] [id number] [facility] 2020-04-10 09:14:00 2020-04-10 09:14:00 Emergency E [facility] [id number] [facility] 2019-11-21 00:00:00 2019-11-21 00:00:00 [id number] 2019-10-19 00:00:00 2019-10-19 00:00:00 [facility] [id number] [facility] 2019-10-18 00:00:00 2019-10-18 00:00:00 [facility] [id number] [facility] 2019-10-17 00:00:00 2019-10-17 00:00:00 [facility] [id number] [facility] 2019-10-17 00:00:00 2019-10-17 00:00:00 [facility] [id number] [facility] 2019-10-07 00:00:00 2019-10-07 00:00:00 [facility] [id number] [facility] 2019-10-07 00:00:00 2019-10-07 00:00:00 [facility] [id number] [facility] 2019-09-29 11:10:38 2019-09-29 11:10:38 [facility] [id number] [facility] 2019-09-29 10:25:07 2019-09-29 10:25:07 [facility] [id number] [facility] 2019-09-29 00:00:00 2019-09-29 00:00:00 [facility] [id number] [facility] 2019-09-29 00:00:00 2019-09-29 00:00:00 [facility] [id number] [facility] 2019-09-29 00:00:00 2019-09-29 00:00:00 [facility] [id number] [facility] 2019-09-22 10:54:00 2019-09-22 10:54:00 Emergency [facility] [id number] [facility] 2019-09-22 09:03:02 2019-09-22 09:03:02 [facility] [id number] [facility] 2019-08-23 00:00:00 2019-08-23 00:00:00 [facility] [id number] [facility] 2019-08-01 00:00:00 2019-08-01 00:00:00 [facility] [id number] [facility] 2019-07-29 09:57:25 2019-07-29 09:57:25 [facility] [id number] [facility] 2019-07-29 00:00:00 2019-07-29 00:00:00 [facility] [id number] [facility] 2019-05-27 00:00:00 2019-05-27 00:00:00 [facility] [id number] [facility] 2019-04-28 00:00:00 2019-04-28 00:00:00 [facility] [id number] [facility] 2019-04-25 07:53:00 2019-04-25 07:53:00 Emergency E [facility] [address] [facility] 2019-04-22 11:00:44 2019-04-22 11:00:44 [facility] [id number] [facility] 2019-04-19 00:00:00 2019-04-19 00:00:00 [facility] [id number] [facility] 2019-04-13 00:00:00 2019-04-13 00:00:00 [facility] [id number] [facility] 2019-04-04 00:00:00 2019-04-04 00:00:00 [facility] [id number] [facility] 2019-04-01 13:36:02 2019-04-01 13:36:02 [facility] [id number] [facility] 2019-03-23 08:37:21 2019-03-23 08:37:21 [facility] [id number] [facility] 2019-03-18 13:37:33 2019-03-18 13:37:33 [facility] [id number] [facility] 2019-03-16 00:00:00 2019-03-16 00:00:00 [facility] [id number] [facility] 2019-03-09 00:00:00 2019-03-09 00:00:00 [facility] [id number] [facility] 2019-03-08 00:00:00 2019-03-08 00:00:00 [facility] [id number] [facility] 2019-03-01 00:00:00 2019-03-01 00:00:00 [facility] [id number] [facility] 2019-02-28 00:00:00 2019-02-28 00:00:00 [facility] [id number] [facility] 2019-02-15 08:01:14 2019-02-15 08:01:14 [facility] [id number] [facility] 2019-02-09 00:00:00 2019-02-09 00:00:00 [facility] [id number] [facility] 2019-02-07 12:50:49 2019-02-07 12:50:49 [facility] [id number] [facility] 2019-02-07 08:05:49 2019-02-07 08:05:49 [facility] [id number] [facility] 2019-02-07 00:00:00 2019-02-07 00:00:00 [facility] [id number] [facility] 2019-02-01 00:00:00 2019-02-01 00:00:00 [facility] [id number] [facility] 2019-01-18 00:00:00 2019-01-18 00:00:00 [facility] [id number] [facility] 2018-12-24 10:45:57 2018-12-24 10:45:57 [facility] [id number] [facility] 2018-12-20 00:00:00 2018-12-20 00:00:00 [facility] [id number] [facility] 2018-12-06 07:48:23 2018-12-06 07:48:23 [facility] [id number] [facility] 2018-11-26 00:00:00 2018-11-26 00:00:00 [facility] [id number] [facility] 2018-11-23 07:36:02 2018-11-23 07:36:02 Outpatient [facility] [id number] [facility] 2018-11-01 00:00:00 2018-11-01 00:00:00 [facility] [id number] [facility] 2018-10-27 00:00:00 2018-10-27 00:00:00 [facility] [id number] [facility] 2018-10-21 00:00:00 2018-10-21 00:00:00 [facility] [id number] [facility] 2018-10-14 12:35:23 2018-10-14 12:35:23 [facility] [id number] [facility] 2018-10-14 00:00:00 2018-10-14 00:00:00 [facility] [id number] [facility] 2018-10-08 13:16:11 2018-10-08 13:16:11 [facility] [id number] [facility] 2018-10-05 09:03:00 2018-10-05 09:03:00 [facility] [id number] [facility] 2018-10-01 13:35:57 2018-10-01 13:35:57 [facility] [id number] [facility] 2018-10-01 09:59:42 2018-10-01 09:59:42 [facility] [id number] [facility] 2018-10-01 00:00:00 2018-10-01 00:00:00 [facility] [id number] [facility] 2018-09-30 00:00:00 2018-09-30 00:00:00 [facility] [id number] [facility] 2018-09-06 00:00:00 2018-09-06 00:00:00 [facility] [id number] [facility] 2018-09-02 00:00:00 2018-09-02 00:00:00 [facility] [id number] [facility] 2018-08-27 15:52:42 2018-08-27 15:52:42 [facility] [id number] [facility] 2018-08-27 14:18:51 2018-08-27 14:18:51 [facility] [id number] [facility] 2018-08-26 14:21:33 2018-08-26 14:21:33 [facility] [id number] [facility] 2018-08-23 00:00:00 2018-08-23 00:00:00 [facility] [id number] [facility] 2018-08-05 14:57:36 2018-08-05 14:57:36 [facility] [id number] [facility] 2018-08-05 00:00:00 2018-08-05 00:00:00 [facility] [id number] [facility] 2018-08-04 10:08:14 2018-08-04 10:08:14 [facility] [id number] [facility] 2018-08-04 09:48:11 2018-08-04 09:48:11 [facility] [id number] [facility] 2018-08-04 08:50:45 2018-08-04 08:50:45 [facility] [id number] [facility] 2018-07-27 00:00:00 2018-07-27 00:00:00 [facility] [id number] [facility] 2018-07-22 00:00:00 2018-07-22 00:00:00 [facility] [id number] [facility] 2018-07-13 00:00:00 2018-07-13 00:00:00 [facility] [id number] [facility] 2018-06-17 10:52:39 2018-06-17 10:52:39 [facility] [id number] [facility] 2018-06-16 00:00:00 2018-06-16 00:00:00 [facility] [id number] [facility] 2018-06-14 11:37:16 2018-06-14 11:37:16 [facility] [id number] [facility] 2018-06-14 10:34:41 2018-06-14 10:34:41 [facility] [id number] [facility] 2018-06-08 00:00:00 2018-06-08 00:00:00 [facility] [id number] [facility] 2018-06-07 00:00:00 2018-06-07 00:00:00 [facility] [id number] [facility] 2018-06-07 00:00:00 2018-06-07 00:00:00 [facility] [id number] [facility] 2018-06-07 00:00:00 2018-06-07 00:00:00 [facility] [id number] [facility] 2018-06-04 00:00:00 2018-06-04 00:00:00 [facility] [id number] [facility] 2018-06-02 00:00:00 2018-06-02 00:00:00 [facility] [id number] [facility] 2018-06-02 00:00:00 2018-06-02 00:00:00 [facility] [id number] [facility] 2018-05-31 00:00:00 2018-05-31 00:00:00 [facility] [id number] [facility] 2018-05-31 00:00:00 2018-05-31 00:00:00 [facility] [id number] [facility] 2018-05-26 00:00:00 2018-05-26 00:00:00 [facility] [id number] [facility] 2018-05-18 00:00:00 2018-05-18 00:00:00 [facility] [id number] [facility] 2018-05-11 11:34:34 2018-05-11 11:34:34 [facility] [id number] [facility] 2018-05-11 10:08:14 2018-05-11 10:08:14 [facility] [id number] [facility] 2018-05-10 00:00:00 2018-05-10 00:00:00 [facility] [id number] [facility] 2018-05-10 00:00:00 2018-05-10 00:00:00 [facility] [id number] [facility] 2018-05-07 00:00:00 2018-05-07 00:00:00 [facility] [id number] [facility] 2018-05-07 00:00:00 2018-05-07 00:00:00 [facility] [id number] [facility] 2018-05-05 00:00:00 2018-05-05 00:00:00 [facility] [id number] [facility] 2018-05-05 00:00:00 2018-05-05 00:00:00 [facility] [id number] [facility] 2018-05-05 00:00:00 2018-05-05 00:00:00 [facility] [id number] [facility] 2018-04-28 00:00:00 2018-04-28 00:00:00 [facility] [id number] [facility] 2018-04-21 08:08:17 2018-04-21 08:08:17 [facility] [id number] [facility] 2018-04-19 08:21:29 2018-04-19 08:21:29 [facility] [id number] [facility] 2018-04-19 00:00:00 2018-04-19 00:00:00 [facility] [id number] [facility] 2018-04-12 15:23:48 2018-04-12 15:23:48 [facility] [id number] [facility] 2018-04-01 00:00:00 2018-04-01 00:00:00 [facility] [id number] [facility] 2018-03-31 14:23:06 2018-03-31 14:23:06 [facility] [id number] [facility] 2018-03-30 15:05:47 2018-03-30 15:05:47 [facility] [id number] [facility] 2018-03-23 00:00:00 2018-03-23 00:00:00 [facility] [id number] [facility] 2018-03-23 00:00:00 2018-03-23 00:00:00 [facility] [id number] [facility] 2018-03-22 00:00:00 2018-03-22 00:00:00 [facility] [id number] [facility] 2018-02-23 00:00:00 2018-02-23 00:00:00 [facility] [id number] [facility] 2018-02-04 00:00:00 2018-02-04 00:00:00 [facility] [id number] [facility] 2018-02-02 00:00:00 2018-02-02 00:00:00 [facility] [id number] [facility] 2018-01-21 00:00:00 2018-01-21 00:00:00 [facility] [id number] [facility] 2018-01-05 08:19:43 2018-01-05 08:19:43 [facility] [id number] [facility] 2017-12-30 00:00:00 2017-12-30 00:00:00 [facility] [id number] [facility] 2017-12-30 00:00:00 2017-12-30 00:00:00 [facility] [id number] [facility] 2017-12-29 00:00:00 2017-12-29 00:00:00 [facility] [id number] [facility] 2017-12-24 11:20:12 2017-12-24 11:20:12 [facility] [id number] [facility] 2017-12-17 00:00:00 2017-12-17 00:00:00 [facility] [id number] [facility] 2017-12-17 00:00:00 2017-12-17 00:00:00 [facility] [id number] [facility] 2017-12-16 00:00:00 2017-12-16 00:00:00 [facility] [id number] [facility] 2017-12-16 00:00:00 2017-12-16 00:00:00 [facility] [id number] [facility] 2017-12-14 12:56:13 2017-12-14 12:56:13 [facility] [id number] [facility] 2017-12-11 00:00:00 2017-12-11 00:00:00 [facility] [id number] [facility] 2017-12-11 00:00:00 2017-12-11 00:00:00 [facility] [id number] [facility] 2017-12-02 15:35:32 2017-12-02 15:35:32 [facility] [id number] [facility] 2017-12-02 13:30:09 2017-12-02 13:30:09 [facility] [id number] [facility] 2017-11-23 00:00:00 2017-11-23 00:00:00 [facility] [id number] [facility] 2017-11-17 11:04:11 2017-11-17 11:04:11 [facility] [id number] [facility] 2017-11-17 09:18:08 2017-11-17 09:18:08 [facility] [id number] [facility] 2017-11-17 08:13:08 2017-11-17 08:13:08 [facility] [id number] [facility] 2017-11-13 00:00:00 2017-11-13 00:00:00 [facility] [id number] [facility] 2017-11-10 00:00:00 2017-11-10 00:00:00 [facility] [id number] [facility] 2017-11-06 00:00:00 2017-11-06 00:00:00 [facility] [id number] [facility] 2017-10-29 00:00:00 2017-10-29 00:00:00 [facility] [id number] [facility] 2017-10-29 00:00:00 2017-10-29 00:00:00 [facility] [id number] [facility] 2017-10-22 09:13:04 2017-10-22 09:13:04 [facility] [id number] [facility] 2017-10-22 00:00:00 2017-10-22 00:00:00 [facility] [id number] [facility] 2017-10-14 08:44:29 2017-10-14 08:44:29 [facility] [id number] [facility] 2017-10-14 00:00:00 2017-10-14 00:00:00 [facility] [id number] [facility] 2017-10-05 00:00:00 2017-10-05 00:00:00 [facility] [id number] [facility] 2017-10-02 10:00:48 2017-10-02 10:00:48 [facility] [id number] [facility] 2017-09-17 10:05:27 2017-09-17 10:05:27 [facility] [id number] [facility] 2017-09-10 15:22:00 2017-09-10 15:22:00 [facility] [id number] [facility] 2016-12-04 12:04:00 2016-12-04 12:04:00 Outpatient Inpatient Providers [facility] [id number] [facility] 2016-12-03 10:15:00 2016-12-03 10:15:00 Outpatient Inpatient Providers [facility] [id number] [facility] 2016-11-20 09:00:00 2016-11-20 09:00:00 Outpatient Inpatient Providers [facility] [id number] [facility] 2016-10-31 09:45:00 2016-10-31 09:45:00 Outpatient Inpatient Providers [facility] [id number] [facility] 2016-10-21 09:08:00 2016-10-21 09:08:00 Outpatient Edward [place], [place] [address] [facility] 2016-10-13 11:00:00 2016-10-13 11:00:00 Outpatient [place] [address] [email or web address] Results Test Description Test Time Test Comments Results Result Comments Source DRAIN/INJECT SM JNT/BURSA 2020-03-27 17:09:19 IM PRESSION: Technically successful ultrasound-guided therapeuticinjection of left ring trigger finger. Dictated By: Edgar Diego MD, 03/27/2020 2:02 PM I have reviewed the study and agree with the findings in this report. Signed By: Jessica Edouard MD, 03/27/2020 5:09 PM Interface, Rad/Mammog In - 03/27/2020 5:14 PM CDTEXAM: ULTRASOUND- GUIDED THERAPEUTIC LEFT RING FINGER INJECTIONDATE: 03/27/2020 1:48 PMINDICATION: Trigger finger, left ring finger, Trigger finger, left ringfinger COMPARISON: Hand radiographs of 08/04/2018PRE-PROCEDURE: Pertinent past medical history and all allergies were reviewed. Consent: An informed consent was obtained from patient prior to theprocedure.Snow Ranger: None. Preferred language is Icelandic. Site and side were marked. Appropriate time out procedures wereperformed. Pr eliminary ultrasound demonstrates focal thickening of the A1 pulleyover the left ring finger metacarpophalangeal joint. PROCEDURE: The skin was prepped and draped in the usual fashion under asepticprecautions. 1% lidocaine was utilized for local anesthesia.Under direct ultrasound guidance a 25 gauge needle was advanced tosurrounding the A1 henrique.Infiltration of lidocaine 1% was performed to produce a cleavage plane.Kenalog 40mg (1mL) and 3mL of 0.25% bupivacaine were subsequentlyinjected the left ring trigger finger.Post procedure check imaging demonstrated no tendon infiltration.No immediate complications.Preprocedure pain score: 5/10Postprocedure pain score: 3/10Dr. Jessica Edouard, attending, was present for the procedure.IMPRESSIONIMPRESSION: Technically successful ultrasound-guided therapeuticinjection of left ring trigger finger.Dictated By: Edgar Diego MD, 03/27/2020 2:02 PMI have reviewed the study and agree with the findings in this report.Signed By: Jessica Edouard MD, 03/27/2020 5:09 PM [facility]/S GUIDED NEEDLE BIOPSY 2020-03-27 17:09:19 IMPRESSION: Technically successful ultrasound-guided therapeuticinjection of left ring trigger finger. Dictated By: Edgar Diego MD, 03/27/2020 2:02 PM I have reviewed the study and agree with the findings in this report. Signed By: Jessica Edouard MD, 03/27/2020 5:09 PM Interface, Rad/Mammog In - 03/27/2020 5:14 PM CDTEXAM: ULTRASOUND- GUIDED THERAPEUTIC LEFT RING FINGER INJECTIONDATE: 03/27/2020 1:48 PMINDICATION: Trigger finger, left ring finger, Trigger finger, left ringfinger COMPARISON: Hand radiographs of 08/04/2018PRE-PROCEDURE: Pertinent past medical history and all allergies were reviewed. Consent: An informed consent was obtained from patient prior to theprocedure.Snow Ranger: None. Preferred language is Icelandic. Site and side were marked. Appropriate time out procedures wereperformed. Pr eliminary ultrasound demonstrates focal thickening of the A1 pulleyover the left ring finger metacarpophalangeal joint. PROCEDURE: The skin was prepped and draped in the usual fashion under asepticprecautions. 1% lidocaine was utilized for local anesthesia.Under direct ultrasound guidance a 25 gauge needle was advanced tosurrounding the A1 henrique.Infiltration of lidocaine 1% was performed to produce a cleavage plane.Kenalog 40mg (1mL) and 3mL of 0.25% bupivacaine were subsequentlyinjected the left ring trigger finger.Post procedure check imaging demonstrated no tendon infiltration.No immediate complications.Preprocedure pain score: 5/10Postprocedure pain score: 3/10Dr. Jessica Edouard, attending, was present for the procedure.IMPRESSIONIMPRESSION: Technically successful ultrasound-guided therapeuticinjection of left ring trigger finger.Dictated By: Edgar Diego MD, 03/27/2020 2:02 PMI have reviewed the study and agree with the findings in this report.Signed By: Jessica Edouard MD, 03/27/2020 5:09 PM [facility] - CT C-SPINE W/O CONTRAST 2020-02-21 16:16:00 Name: LOUISE LAND [facility] : 1965 Age/S: 54 / M [address] [facility] Unit #: [id number] Loc: [place] [address] Phys: Jaime Mcclain MD Acct: [id number] Dis Date: Status: REG ER PHONE #: [phone] Exam Date: 02/21/2020 1603 FAX #: [phone] Reason: NECK PAIN EXAMS: CPT CODE: [id number] CT C-SPINE W/O CONTRAST 50519 HISTORY: NECK PAIN TECHNIQUE: 2.[address] of the cervical spine. Sagittal and coronal reformatted images were generated. Automated exposure control for dose reduction. COMPARISON: None FINDINGS: No acute fracture of the cervical spine. No subluxation. Craniocervical and cervicothoracic articulations are appropriate. Vertebral body heights are preserved. There has been prior fusion of C4-C7 with placement of bone grafts. Mild central canal narrowing at the level of C4-C5, C5-C6 due to disc osteophytes. No prevertebral or paraspinal soft tissue abnormality. Visualized posterior fossa contents are grossly unremarkable. Lung apices are clear. Left mastoid air cells are underpneumatized. IMPRESSION: Mild degenerative changes of the cervical spine with prior fusion of C4-C7. No malalignment or fractures seen. Location: [facility] at 1616 Reported and signed by: Lukasz Thomason MD CC: Jaime Mcclain MD Technologist:Hannah Pearce RT(R); RAMONA Sparks CTDI: DLP: Trnscb Date/Time: 02/21/2020 (161) t.[email or web address] Orig Print D/T: S: 02/21/2020 (9348) PAGE 1 Signed Report PROTHROMBIN TIME 2020-02-21 16:10:00 Test Item PROTHROMBIN TIME PATIENT (test code = PTP) 10.4 seconds 9.0-14.0 N INTERNATIONAL NORMAL RATIO (test code = INR) 0.9 0.8-1.2 N The therapeutic range for oral anticoagulant therapy formost indications is an international normalized ratio (INR)of between 2.0 and 3.0. The recommended therapeutic INRrange for various clinical situations is listed below: Clinical Situation INR range Pulmonary e mbolism treatment (2.0-3.0)Venous thrombosis treatmentVenous thrombosis prophylaxis (high risk surgery)Prevention of systemic embolism from: Acute myocardial infarction Valvular heart disease Atrial fibrillation Mechanical prosthetic heart valves (2.5-3.5) IS PATIENT ON ANTICOAGULANTS? NTHROMBOPLASTIN TIME [id number] 16:10:00* Test Item Value Reference Range Interpretation Comments THROMBOPLASTIN TIME PARTIAL (test code = PTT) 40.6 seconds 23.0-37. 0 H IS PATIENT ON ANTICOAGULANTS? NBASIC METABOLIC [id number] 16:09:00* Test Item Value Reference Range Interpretation Comments SODIUM (test code = NA) 136 mmol/L 136-145 N POTASSIUM (test code = K) 3.4 mmol/L 3.5-5.1 L CHLORIDE (test code = CL) 102.0 mmol/L 98-107 N CARBON DIOXIDE (test code = CO2) mmol/L 21-32 ANION GAP (test code = GAP) 10-20 GLUCOSE (test code = GLU) mg/dL 74-106 BLOOD UREA NITROGEN (test code = BUN) mg/dL 7-18 GLOMERULAR FILTRATION RATE (test code = GFR) mL/min >=60 CREATININE (test code = CREAT) mg/dL 0.7-1.3 BUN/CREATININE RATIO (test code = BUN/CREA) 10-20 CALCIUM (test code = CA) 9.5 mg/dL 8.5-10.1 N BASIC METABOLIC [id number] 16:09:00* Test Item Value Reference Range Interpretation Comments SODIUM (test code = NA) 136 mmol/L 136-145 N POTASSIUM (test code = K) 3.4 mmol/L 3.5-5.1 L CHLORIDE (test code = CL) 102.0 mmol/L 98-107 N CARBON DIOXIDE (test code = CO2) 29.0 mmol/L 21-32 N ANION GAP (test code = GAP) 8.4 10-20 L GLUCOSE (test code = GLU) 107 mg/dL 74-106 H BLOOD UREA NITROGEN (test code = BUN) 8 mg/dL 7-18 N GLOMERULAR FILTRATION RATE (test code = GFR) > 60 mL/min >=60 Estimated GFR by using Modified MDRD formula.Chronic kidney disease is defined as either kidney damageor GFR <60 mL/min/1.73 m2 for >3 months. CREATININE (test code = CREAT) 0.80 mg/dL 0.7-1.3 N BUN/CREATININE RATIO (test code = BUN/CREA) 10.4 10-20 N CALCIUM (test code = CA) 9.5 mg/dL 8.5-10.1 N CBC W/O [id number] 15:52:00* Test Item Value Reference Range Interpretation Comments WHITE BLOOD CELL (test code = WBC) 10.1 K/mm3 4.5-12.5 N RED BLOOD CELL (test code = RBC) 5.87 mill/mm3 4.0-5.8 H HEMOGLOBIN (test code = HGB) 13.7 gram/dL 13.0-17.5 N HEMATOCRIT (test code = HCT) 43.5 % 42.0-52.0 N MEAN CELL VOLUME (test code = MCV) 74.1 fL 80-98 L MEAN CELL HGB (test code = MCH) 23.3 picogram 27.0-33.0 L MEAN CELL HGB CONCETRATION (test code = MCHC) 31.5 gram/dL 33.0-36. 0 L RED CELL DISTRIBUTION WIDTH (test code = RDW) 17.2 % 11.6-16. 2 H PLATELET COUNT (test code = PLT) 272 K/mm3 150-450 N MEAN PLATELET VOLUME (test code = MPV) 9.7 fL 6.7-11.0 N CBC W/O [id number] 15:51:00* Test Item Value Reference Range Interpretation Comments WHITE BLOOD CELL (test code = WBC) K/mm3 4.5-12.5 RED BLOOD CELL (test code = RBC) mill/mm3 4.0-5.8 HEMOGLOBIN (test code = HGB) 13.7 gram/dL 13.0-17.5 N HEMATOCRIT (test code = HCT) 43.5 % 42.0-52.0 N MEAN CELL VOLUME (test code = MCV) fL 80-98 MEAN CELL HGB (test code = MCH) picogram 27.0-33.0 MEAN CELL HGB CONCETRATION (test code = MCHC) gram/dL 33.0-36. 0 RED CELL DISTRIBUTION WIDTH (test code = RDW) % 11.6-16. 2 PLATELET COUNT (test code = PLT) K/mm3 150-450 MEAN PLATELET VOLUME (test code = MPV) fL 6.7-11.0 XRAY CHEST 2 [id number] 14:38:08IMPRESSION: No acute thoracic abnormality. No significant change compared to theprevious chest x-ray 12/02/2017. If the report is "FINALIZED" it indicates that the attending/staffradiologist has reviewed the images and agrees with the resident'sinterpretation. Dictated By: Rashi Sosa MD, 10/07/2019 9:17 AM I have reviewed the study and agree with the findings in this report. Signed By: Rashi Leahy MD, 10/07/2019 2:38 PM Interface, Rad/Mammog In - 10/07/2019 2:43 PM CSTEXAMINATION: XRAY CHEST 2 VIEWS, Frontal and lateralINDICATION: sharp chest pain COMPARISON: Chest x-ray 03/31/2018; chest CT, 12/14/2017 FINDINGS: TUBES/LINES: NoneLUNGS AND PLEURA: No consolidations or edema. No effusions orpneumothorax. HEART/MEDIASTINUM: Stable retrocardiac opacity is consistent withtortuous aorta and hiatus hernia as seen on previous CT.MUSCULOSKELETAL: No acute findings.UPPER ABDOMEN: No acute findings.SOFT TISSUES: No acute findings.IMPRE SSIONIMPRESSION: No acute thoracic abnormality. No significant change compared t o theprevious chest x-ray 12/02/2017.If the report is "FINALIZED" it indicates th at the attending/staffradiologist has reviewed the images and agrees with the re sident'sinterpretation.Dictated By: Rashi Sosa MD, 10/07/2019 9:17 AMI have reviewed the study and agree with the findings in this report.Signed By: Rashi Leahy MD, 10/07/2019 2:38 PMHarpres[facility] HealthFecal Occult [id number] 18:20:00* Test Item Value Reference Range Interpretation Comments Occult Blood (test code = 38926-3) Negative Negative Lab Interpretation (test code = 03518-4) Normal [facility] HealthHepatitis [id number] 12:36:00* Test Item Value Reference Range Interpretation Comments Hepatitis C Virus (HCV) Antibody (test code = 89615-0) Negative Negative Hep B Surface Ag (test code = 5196-1) Negative Negative Hep A Vir Ab IgM (test code = 82833-2) Negative Negative Hep B Core Ab IgM (test code = 69137-1) Negative Negative Lab Interpretation (test code = 70633-3) Normal [facility] HealthVitamin D, 45-Elkfbaquamlzlbytt8917-74-07 10:48:00* Test Item Value Reference Range Interpretation Comments Vit D, 25-Hydroxy (test code = 62166374) 26.6 ng/mL 30-100 L Vitamin D Interpretation (test code = 22907687) Insufficient Suffic ient A Sufficient: >30.0Insufficient: 20.0 - 29.9Deficient: <20.0 Lab Interpretation (test code = 34323-0) Abnormal [facility] HealthHIV-1/HIV-2 Routine Fkknfngiq0631-33-42 08:44:00* Test Item Value Reference Range Interpretation Comments HIV Ag/Ab Combo (test code = 80086-6) Negative Negative Lab Interpretation (test code = 83825-4) Normal [facility] HealthHemoglobin [id number] 07:52:00* Test Item Value Reference Range Interpretation Comments Hemoglobin A1c (test code = 4548-4) 6.3 % 4.3-6.1 H Estimated Average Glucose (test code = 70908544) 134 mg/dL 70-11 0 H Lab Interpretation (test code = 78607-8) Abnormal [facility] HealthUrea Nitrogen/Udvgyiwrqo5266-74-12 07:46:00* Test Item Value Reference Range Interpretation Comments Urea Nitrogen (test code = 89062500) 7.0 mg/dL 7-25 Creatinine (test code = 56370877) 0.8 mg/dL 0.7-1.3 eGFR If Africn Am (test code = 74170073) >90 >=90 mL/min/1 .73 m2 Lab Interpretation (test code = 34779-3) Normal [facility] PkvsgeConruru0453-33-98 07:46:00* Test Item Value Reference Range Interpretation Comments Calcium (test code = 60525243) 9.7 mg/dL 8.6-10.3 Lab Interpretation (test code = 13907-0) Normal [facility] HealthHtnnbxTxaofzd7724-83-35 07:46:00* Test Item Value Reference Range Interpretation Comments Glucose (test code = 20087606) 111 mg/dL 70-110 H Lab Interpretation (test code = 01788-6) Abnormal [facility] HealthLipid Vzqmtnl0010-84-20 07:46:00* Test Item Value Reference Range Interpretation Comments Cholesterol (test code = 2093-3) 179.0 mg/dL <=200.0 Triglyceride (test code = 17121078) 137 mg/dL <150 HDL (test code = 2085-9) 52.0 mg/dL See Reference Range Narrative . LDL (test code = 39323-9) 100 mg/dL <100 H Op timal: < 100.0 mg/dLNear Optimal: 120-129 mg/dLBorderline: 130-159 mg/dLHigh: 160-189 mg/dLVery High: >=190 mg/dL Patient Fasting? (test code = 50019284) Yes Lab Interpretation (test code = 89506-1) Abnormal [facility] HealthLiver Mxkmurw1366-72-18 07:46:00* Test Item Value Reference Range Interpretation Comments Bilirubin, Total (test code = 2885-2) 0.3 mg/dL 0.2-1.2 Alkaline Phosphatase (test code = 18163520) 78 U/L 34-104 AST (test code = 14452387) 12 U/L 13-39 L Direct Bilirubin (test code = 1968-7) 0.1 mg/dL 0-0.2 ALT (test code = 24707168) 12 U/L 7-52 Albumin (test code = 99714-6) 4.0 g/dL 4.2-5.5 L Lab Interpretation (test code = 79622-4) Abnormal [facility] HealthCBC/Tthw8090-07-01 07:34:00* Test Item Value Reference Range Interpretation Comments WBC (test code = 6690-2) 10.5 K/uL 4.5-12 RBC (test code = 789-8) 5.93 4.60- 6.20 M/uL Hemoglobin (test code = 718-7) 13.3 g/dL 14-18 L Hematocrit (test code = 4544-3) 45.0 % 40-54 MCV (test code = 787-2) 75.9 fL 82-92 L MCH (test code = 785-6) 22.4 pg 27-31 L MCHC (test code = 786-4) 29.6 g/dL 32-36 L RDW (test code = 85253-3) 48.6 fL 35.1-43.9 H Platelet (test code = 777-3) 315 K/uL 150-400 Mean Platelet Volume (test code = 55624-0) 10.7 fL 9.4-12.4 Percent NRBC (test code = 13930440) 0.0 % Neutrophil (test code = 770-8) 66.4 % 34-67.9 Lymphs (test code = 736-9) 28.1 % 21.8-50 Monocytes (test code = 5905-5) 4.6 % 5.3-12 L Eos (test code = 713-8) 0.6 % 0.8-5 L Basos (test code = 706-2) 0.2 % 0.2-1.2 Immature Granulocytes (test code = 09830478) 0.1 % 0-0.5 Neutrophils (Absolute) (test code = 05908388) 6.96 K/uL 1.78-5.3 6 H Lymphs (Absolute) (test code = 93150907) 2.95 K/uL 1.32-3.57 Monocytes(Absolute) (test code = 61785561) 0.48 K/uL 0.3-0.82 Eos (Absolute) (test code = 58019852) 0.06 K/uL 0.04-0.54 Baso (Absolute) (test code = 49358323) 0.02 K/uL 0.01-0.08 Immature Grans (Abs) (test code = 36939955) 0.01 K/uL 0-0.03 Absolute NRBC (test code = 54882768) 0.00 K/uL Lab Interpretation (test code = 73187-3) Abnormal [facility] HealthMicroalbumin / Creatinine Urine [id number] 14:45:00* Test Item Value Reference Range Interpretation Comments Microalbumin, Random (test code = 53535601) 2.1 mg/dL <30.0 Creatinine, Urine (test code = 40027931) 192 mg/dL 20-370 Urine Microalbumin (test code = 10013580) 10.9 mg/g 0-30 Lab Interpretation (test code = 52058-3) Normal [place] [address] LEAD [id number] 11:25:3812 LEAD EKG FOR [facility] Test Date: 3567-37-55Psl Name: LOUISE LAND Department: 4621Patient ID: [id number] Room: Gender: M Braided Rug [employer]: : 1965 Requested By: MARK CARO WOrder Number: [id number] Mari MD: Pablo Carney MeasurementsIntervals [place] Rate: 71 P: 37PR: 188 QRS: 57QRSD: 78 T: 132QT: 364 QTc: 398 Interpretive StatementsSINUS RHYTHMNONSPECIFIC T-WAVE ABNORMALITYElectronically Signed On 09-29-2019 11:25:36 [place] WEIGHER by [facility] CenterPOCT GLUCOSE POC docked hcrxye0118-84-39 06:23:00* Test Item Value Reference Range Interpretation Comments Glucose POC (test code = 47293925) 134 mg/dL 74-106 H Lab Interpretation (test code = 51121-0) Abnormal [facility]12 LEAD [id number] 11:36:5512 LEAD EKG FOR [facility] Test Date: 8357-73-58Sro Name: LOUISE LAND Department: 4522Patient ID: [id number] Room: Gender: M Braided 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
--- OUTSIDE RECORDS SUMMARY | 2020-04-24 06:24 | XMS REPORT | Clinical Summary ---
Author Author [facility] ict Organization [facility] ict Address Unknown Phone Unavailable Care Team Providers Care Boat Hop Name Role Phone Mark Stoll MD PCP Allergies Comments Active Allergy Reactions Severity Noted Date Celecoxib Rash Medium 12/06/2018 Contrast Hives 09/15/2010 DRYNESS Lisinopril 05/01/2011 Nsaids (Non-Steroidal Hives 09/15/2010 Anti-Inflammatory Drug) Pt states he had to use an epipen Acetaminophen Hives 09/15/2010 Medications End Date Status Medication Sig Dispensed Refills Start Date Active OMEGA-3 FATTY ACIDS (FISH Take by 0 OIL OR) mouth. Active hydrOXYzine (ATARAX) 25 Take 1 tablet 30 tablet 0 mg tabletIndications: by mouth 3 7 Hives times daily as needed for up to 10 days for Itching. Active blood glucose Use as 1 Kit 0 meterIndications: Type 2 directed.. 7 diabetes mellitus without complication, without long-term current use of insulin Active blood glucose (PRECISION Use 2 times 50 Each 3 1 XTRA TEST STRIPS) test weekly (once 7 stripsIndications: Type 2 per day on diabetes mellitus without Thu,) to complication, without test blood long-term current use of sugar. insulin Active polyethylene glycol Add lukewarm 4000 mL 0 08/29 (GOLYTELY) 236-22.74-6.74 drinking 8 -5.86 gram oral water to the solutionIndications: fill sonia (4 Occult blood positive liters) and stool shake. Drink as directed by your doctor.. Active Miscellaneous Medical One Temporary 1 Each 0 Supply MiscIndications: Parking 8 Abnormality of gait and Placard mobility, Frequent falls Dx. M25.561. Active polyethylene glycol Add lukewarm 4000 mL 0 03/30 (GOLYTELY) 236-22.74-6.74 drinking 8 -5.86 gram oral water to the solutionIndications: Heme fill sonia (4 positive stool liters) and shake. Drink as directed by your doctor.. Active levothyroxine (SYNTHROID) Take 1 tablet 30 tablet 3 25 mcg tabletIndications: by mouth 8 Hypothyroidism, daily. unspecified type Active blood glucose (PRECISION Check blood 50 Each 3 0 XTRA TEST STRIPS) test glucose 2 8 stripsIndications: Type 2 times weekly diabetes mellitus without complication, without long-term current use of insulin Active Miscellaneous Medical by 1 Each 0 07/24 Supply MiscIndications: Misc.(Non-Donell 8 Arthralgia, unspecified g; Combo joint Route) route Temporary handicap sticker. Active azaTHIOprine (IMURAN) 50 Take 1 tablet 30 tablet 0 mg tabletIndications: by mouth 9 Chronic urticaria daily for 30 days. Active lancets 28 Use 2 times 100 Each 1 gaugeIndications: Type 2 weekly as 9 diabetes mellitus without directed. complication, without long-term current use of insulin Active pramipexole (MIRAPEX) Take 1 tablet 30 tablet 11 0.125 mg by mouth 3 9 tabletIndications: times daily. Restless leg syndrome, uncontrolled Active omalizumab (XOLAIR) 150 Inject 1.2 mL 4 Each 1 mg injectionIndications: under the 9 Chronic urticaria skin every month. Additional Information Patient not taking. Reported on 07/29/2019 10:57 AM Active Miscellaneous Medical by 1 Each 0 Supply MiscIndications: Misc.(Non-Donell 9 Primary osteoarthritis of g; Combo both hips Route) route Permanent Handicap sticker. Active CPAP DeviceIndications: Use device as 1 Device 0 Moderate episode of directed. 9 recurrent major Date of depressive disorder, YURI Study: (obstructive sleep apnea) 12/22/2017 Diagnosis: YURI 327.23 AHI:110 SaO2 eli: 85% CPAP Pressure: 12 cm H2O with heated humidifier: Yes with mask (fit to patient) and supplies as needed: Yes; prefers full mask Chin Strap: No. Active mupirocin calcium Apply to 15 g 0 04/22/20 1 (BACTROBAN) 2 % topical affected area 9 creamIndications: Skin 2 times lesion daily. Active ergocalciferol (VITAMIN Take 1 12 capsule 0 D2) 1,250 mcg (50,000 capsule by 0 unit) capsuleIndications: mouth weekly. Vitamin D deficiency Active zolpidem (AMBIEN) 10 mg Take 1 tablet 30 tablet 1 TabIndications: Moderate by mouth 0 episode of recurrent nightly at major depressive bedtime as disorder, PTSD needed for (post-traumatic stress Insomnia Need disorder) to see psychiatry for more refill. Active cetirizine (ZYRTEC) 10 mg Take 1 tablet 90 tablet 1 tabletIndications: by mouth 0 Chronic urticaria daily. Active amLODIPine (NORVASC) 5 mg Take 1 tablet 90 tablet 0 tabletIndications: by mouth 0 Essential hypertension daily. Active metFORMIN (GLUCOPHAGE) Take 1 tablet 90 tablet 0 0 500 mg tabletIndications: by mouth 0 Type 2 diabetes mellitus daily (with without complication, breakfast). without long-term current use of insulin Active clopidogreL (PLAVIX) 75 Take 1 tablet 30 tablet 3 mg tabletIndications: by mouth 0 Coronary artery disease daily. due to lipid rich plaque Active nitroGLYCERIN (NITRO-DUR) Apply 1 Patch 30 Patch 3 0.2 mg/hr to skin as 0 patchIndications: directed Coronary artery disease daily. due to lipid rich plaque Active hydrOXYzine (ATARAX) 25 Take 1 tablet 90 tablet 3 mg tabletIndications: by mouth 3 0 Chronic urticaria times daily as needed for Itching or Anxiety. Active atorvastatin (LIPITOR) 40 Take 1 tablet 90 tablet 0 mg tabletIndications: by mouth at 0 Hyperlipidemia, bedtime unspecified nightly For hyperlipidemia type cholesterol. Active atenoloL (TENORMIN) 50 mg Take 1 tablet 90 tablet 0 tabletIndications: by mouth 0 Essential hypertension daily. Active omeprazole (PRILOSEC) 20 Take 1 90 capsule 1 0 mg delayed release capsule by 0 capsuleIndications: mouth daily. 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 recurrent major depressive disorder, PTSD (post-traumatic stress disorder), YURI (obstructive sleep apnea) Active methocarbamoL Take 1 tablet 60 tablet 1 (ROBAXIN-750) 750 mg by mouth 3 0 tabletIndications: Neck times daily pain as needed for Pain. Active mometasone (NASONEX) 50 Use 1 spray 17 g 0 mcg/actuation nasal in each 0 sprayIndications: Runny nostril nose daily. Active hydrOXYzine (ATARAX) 25 Take 1 tablet 1 tablet 0 mg tabletIndications: by mouth 30 0 Neck pain minutes before MRI. Active candesartan (ATACAND) 4 Take 2 60 tablet 2 mg tabletIndications: tablets by 0 Essential hypertension mouth daily. Active gabapentin (NEURONTIN) Take 1 90 capsule 2 100 mg capsule by 0 capsuleIndications: Chest mouth 3 times wall pain daily. 07/29/2019 Discontinued (Alternate ther apy) ciclesonide (ZETONNA) 37 Use 1 [place] 6.1 g 0 1 mcg/actuation nasal HFA in each 8 inhalerIndications: nostril Seasonal allergic daily. rhinitis, unspecified trigger, Allergic cough 05/17/2019 Discontinued (Reorder) metFORMIN (GLUCOPHAGE) Take 1 tablet 90 tablet 1 1 500 mg tabletIndications: by mouth 8 Type 2 diabetes mellitus daily (with without complication, breakfast). without long-term current use of insulin 09/29/2019 Discontinued (Therapy comple yary) chlorhexidine (PERIDEX) Swish with 473 mL 0 0.12 % mouth 1/2 oz of 9 washIndications: Active solution in dental caries mouth for 30 seconds and spit. Use twice daily.. 09/29/2019 Discontinued (Therapy comple yary) cycloSPORINE modified Take 2 120 capsule 0 (NEORAL) 100 mg capsules (200 9 capsuleIndications: Hives mg total) by mouth 2 times daily 05/17/2019 Discontinued (Alternate ther apy) losartan (COZAAR) 100 mg Take 1 tablet 90 tablet 1 tabletIndications: by mouth 9 Essential hypertension daily. 01/19/2020 Discontinued nitroGLYCERIN (NITRO-DUR) Apply 1 Patch 30 Patch 3 0.2 mg/hr to skin as 9 patchIndications: directed Coronary artery disease daily. due to lipid rich plaque 07/05/2019 Discontinued (Reorder) atorvastatin (LIPITOR) 40 Take 1 tablet 90 tablet 0 mg tabletIndications: by mouth at 9 Hyperlipidemia, bedtime unspecified nightly For hyperlipidemia type cholesterol. 09/29/2019 Discontinued (Reorder) clopidogrel (PLAVIX) 75 Take 1 tablet 30 tablet 3 mg tabletIndications: by mouth 9 Coronary artery disease daily. due to lipid rich plaque 02/13/2020 Discontinued (Reorder) hydrOXYzine (ATARAX) 25 Take 1 tablet 90 tablet 3 mg tablet by mouth 3 9 times daily as needed for Itching or Anxiety. 09/29/2019 Discontinued (Therapy comple yary) azaTHIOprine (IMURAN) 50 Take 1 tablet 60 tablet 1 mg tabletIndications: by mouth 2 9 Chronic urticaria times daily. 02/28/2020 Discontinued (Therapy comple yary) cyclobenzaprine Take 1 tablet 60 tablet 2 02/16/20 1 (FLEXERIL) 10 mg by mouth 2 9 tabletIndications: Muscle times daily pain, Primary as needed for osteoarthritis of both Muscle hips, Chronic pain of Spasms. both knees, Spasm of muscle 07/05/2019 Discontinued (Reorder) candesartan (ATACAND) 4 Take 1 tablet 30 tablet 3 mg tabletIndications: by mouth 9 Essential hypertension daily. 10/09/2019 Discontinued (Reorder) buPROPion (WELLBUTRIN XL) Take 1 tablet 30 tablet 3 150 mg extended release by mouth 9 tabletIndications: every Moderate episode of morning. recurrent major depressive disorder, PTSD (post-traumatic stress disorder), YURI (obstructive sleep apnea) 10/09/2019 Discontinued (Reorder) zolpidem (AMBIEN) 10 mg Take 1 tablet 30 tablet 3 TabIndications: Moderate by mouth 9 episode of recurrent nightly at major depressive bedtime as disorder, PTSD needed for (post-traumatic stress Insomnia. disorder) 10/09/2019 Discontinued (Reorder) omeprazole (PRILOSEC) 20 Take 1 90 capsule 1 0 mg delayed release capsule by 9 capsuleIndications: mouth daily. 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 06/02/2019 Discontinued (Reorder) cetirizine (ZYRTEC) 10 mg Take 1 tablet 30 tablet 0 tabletIndications: by mouth 9 Chronic urticaria daily. 04/29/2019 clindamycin (CLEOCIN HCL) Take 1 21 capsule 0 300 mg capsule by 9 capsuleIndications: Skin mouth 3 times lesion daily for 7 days. 05/02/2019 acetaminophen-codeine Take 1 tablet 20 tablet 0 (TYLENOL #3) 300-30 mg by mouth 2 9 per tabletIndications: times daily Pain as needed for up to 10 days for Pain. 11/08/2019 Discontinued (Reorder) metFORMIN (GLUCOPHAGE) Take 1 tablet 90 tablet 0 0 500 mg tabletIndications: by mouth 9 Type 2 diabetes mellitus daily (with without complication, breakfast). without long-term current use of insulin 07/05/2019 Discontinued (Reorder) cetirizine (ZYRTEC) 10 mg Take 1 tablet 30 tablet 0 tabletIndications: by mouth 9 Chronic urticaria daily. 01/18/2020 Discontinued (Reorder) atorvastatin (LIPITOR) 40 Take 1 tablet 90 tablet 0 mg tabletIndications: by mouth at 9 Hyperlipidemia, bedtime unspecified nightly For hyperlipidemia type cholesterol. 07/29/2019 Discontinued (Reorder) candesartan (ATACAND) 4 Take 1 tablet 90 tablet 0 mg tabletIndications: by mouth 9 Essential hypertension daily. 12/02/2019 Discontinued cetirizine (ZYRTEC) 10 mg Take 1 tablet 30 tablet 0 tabletIndications: by mouth 9 Chronic urticaria daily. 07/29/2019 tropicamide (MYDRIACYL) Instill 1 15 mL 0 12 /06/201 0.5 % ophthalmic Drop in each 9 solutionIndications: Type eye once as 2 diabetes mellitus needed for up without complication, to 1 dose without long-term current (for poor use of insulin retina scan image). 10/17/2019 Discontinued (Reorder) mometasone (NASONEX) 50 Use 1 [place] 17 g 0 mcg/actuation nasal by each 9 sprayIndications: Runny nostril route nose daily. 12/21/2019 Discontinued (Reorder) candesartan (ATACAND) 4 Take 2 180 tablet 0 mg tabletIndications: tablets by 9 Essential hypertension mouth daily. 03/28/2020 tropicamide (MYDRIACYL) Instill 1 15 mL 0 0.5 % ophthalmic Drop in each 0 solutionIndications: Type eye once as 2 diabetes with needed for up complication to 1 dose (for poor retina scan image). 01/18/2020 Discontinued (Reorder) amLODIPine (NORVASC) 5 mg Take 1 tablet 30 tablet 3 tabletIndications: by mouth 0 Essential hypertension daily. 01/19/2020 Discontinued clopidogreL (PLAVIX) 75 Take 1 tablet 30 tablet 3 mg tabletIndications: by mouth 0 Coronary artery disease daily. due to lipid rich plaque 02/20/2020 Discontinued (Reorder) omeprazole (PRILOSEC) 20 Take 1 90 capsule 1 0 mg delayed release capsule by 0 capsuleIndications: mouth daily. 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 recurrent major depressive disorder, PTSD (post-traumatic stress disorder), YURI (obstructive sleep apnea) 01/19/2020 Discontinued mometasone (NASONEX) 50 Use 1 [place] 17 g 0 mcg/actuation nasal by each 0 sprayIndications: Runny nostril route nose daily. 02/20/2020 Discontinued (Reorder) atenoloL (TENORMIN) 50 mg Take 1 tablet 90 tablet 0 tabletIndications: by mouth 0 Essential hypertension daily. 01/18/2020 Discontinued (Reorder) metFORMIN (GLUCOPHAGE) Take 1 tablet 30 tablet 2 0 500 mg tabletIndications: by mouth 0 Type 2 diabetes mellitus daily (with without complication, breakfast). without long-term current use of insulin 03/30/2020 Discontinued (Reorder) candesartan (ATACAND) 4 Take 2 60 tablet 2 mg tabletIndications: tablets by 0 Essential hypertension mouth daily. 02/13/2020 Discontinued (Reorder) atorvastatin (LIPITOR) 40 Take 1 tablet 90 tablet 0 mg tabletIndications: by mouth at 0 Hyperlipidemia, bedtime unspecified nightly For hyperlipidemia type cholesterol. 02/28/2020 Discontinued (Reorder) mometasone (NASONEX) 50 Use 1 spray 17 g 0 mcg/actuation nasal in each 0 sprayIndications: Runny nostril nose daily. 02/28/2020 Discontinued hydrOXYzine (ATARAX) 25 Take 30 1 tablet 0 mg tabletIndications: minutes 0 Neck pain before MRI. Status Hospital, Clinic, or Ordered Dose Route Frequency Start End Date Other Facility Date Administered Medication Ended cloNIDine HCl (CATAPRES) 0.1 mg OR ONCE 09/29/19 tablet 0.1 mgIndications: 20 0 Type 2 diabetes with complication Active Problems Problem Noted Date Diet-controlled diabetes mellitus 05/11/2018 Hip impingement syndrome 05/11/2018 Essential hypertension, benign 03/25/2017 Type 2 diabetes mellitus without complication, withou t long-term current 03/25/2017 use of insulin HTN (hypertension) 10/14/2012 Neck pain 04/08/2011 Knight's esophagus Encounters Care Team Description Date Type Specialty Mark Stoll III, MD Neck pain (Primary Dx); Type 2 diabetes with complication; Coronary artery disease due to lipid rich plaque; Hypertension, uncontrolled; Hyperlipidemia, unspecified hyperlipidemia type; Chest wall pain 04/17/2020 Telemedicine Family Practice Doctor, [facility] 04/09/2020 E-Visit Mark Stoll III, MD Medications 03/30/2020 Refill Family Practice Mark Stoll III, MD Trigger finger, left ring finger 03/27/2020 Hospital Radiology Encounter Mark Stoll III, MD Medications 03/05/2020 Refill Family Practice Mark Stoll III, MD Neck pain (Primary Dx); Runny nose; Type 2 diabetes with complication; Hypertension, uncontrolled; Coronary artery disease due to lipid rich plaque; Hyperlipidemia, unspecified hyperlipidemia type 02/28/2020 Telephonic [facility] Encounter Mark Stoll III, MD Medications 02/28/2020 Refill [facility] Jeremias Jerez MD Medications 02/28/2020 Refill Psychiatry StollMark wild III, MD Medications 02/28/2020 Refill [facility] Doctor [facility] 02/28/2020 E-Visit Mark Stoll III, MD Medications 02/21/2020 Refill [facility] Jeremias Jerez MD Medications 02/20/2020 [place] Medications [facility]2020 Ref[facility] Jeremias Jerez MD Medications 01/18/2020 [facility] [facility] [place] Medications 01/18/2020 Refill [facility] Jeremias Jerez MD Medications 12/22/2019 [facility] [facility] [place] Medications 12/22/2019 Refill [facility] Abner Brown MD Medications 12/21/2019 [facility] 11/08/2019 Refill [facility] Jeanette Rudolph RN 10/27/2019 Clinical Case Social Work Mgt Mark Stoll III, MD Medications 10/26/2019 [facility] Trigger finger, left ring finger 10/18/2019 Hospital Radiology Encounter Abner Brown MD Medications 10/17/2019 Refill [facility] Holger Lomeli MD Medications 10/09/2019 Refill Psychiatry [place]ollMark wild III, MD Medications 10/09[facility] Ancillary Radiology Procedure Mark Stoll III, MD Encounter for diabetic foot exam (Primar y Dx); Preventative health care; Headache, unspecified headache type; Essential hypertension; Coronary artery disease due to lipid rich plaque; Type 2 diabetes with complication; Chest pain, unspecified type; Hand numbness 09/29/2019 Office Visit [facility] Mark Stoll III, MD 09/29/2019 Orders Only [facility] 09/22/2019 Emergency Emergency Medicine Chace Meadows PA Headache, unspecified headache type (Yesica eren Dx); Abnormal EKG; Tingling sensation; Hypertension, uncontrolled 09/22/2019 Office Visit [facility] Abner Brown MD Trigger ring finger of left hand (Primar y Dx); Need for vaccination; Type 2 diabetes mellitus without complication, without long-term current use of insulin; Runny nose; Essential hypertension 07/29/2019 Office Visit [facility] Mark Stoll III, MD Medications 07/05/2019 Refill [facility] Mark Stoll III, MD Medications 06/02/2019 Refill [facility] Mark Stoll III, MD Medications 05/17/2019 [address] [facility] after 04/24/2019 Immunizations Name Administration Dates Next Due Influenza Vaccine 09/10/2017 (Deferred: Contr aindication) Influenza Vaccine, 10/14/2017, 09/17/2017 (Def erred: Patient Refused) Seasonal, Injectable Influenza, Injectable, 07/29/2019 Quadrivalent Influenza, 06/14/2018 Vaccine<FLUCELVAX>(Multi- Dose) PNEUMOCOCCAL 23-VALPS 06/16/2017 (Deferred: Other - received steroid VACCINE 25 MCG/0.5 ML injection today, defer for now per CHARGE WEIGHER) INJECTION PPV 23 (Pneumococcal 2017 Polysaccharide 23 Valent) Tdap Tetanus, diphtheria, 08/24/2010 acellular pertussis Vaccine Family History Medical History Relation Name Comments Leukemia Daughter Cancer Maternal Aunt Diabetes Maternal Aunt Heart Maternal Grandmother Arthritis Mother Hypertension Mother Bone cancer Other Relation Name Status Comments Brother Alive Daughter Alive Daughter Alive Daughter Alive Maternal Aunt Maternal Grandfather Maternal Grandmother Mother Other Alive niece Paternal Grandfather Alive Paternal Grandmother Alive Sister Alive Sister Alive Sister Alive Son Alive Social History Date Tobacco Use Types Packs/Day Years Used Never Smoker Smokeless Tobacco: Never Used Tobacco Cessation: Counseling Given: No Drinks/Week oz/Week Comments Alcohol Use No Food Insecurity Answer Date Recorded Within the past 12 months, you worried that your Never estephanei e 03/30/2018 food would run out before you got money to buy more. Within the past 12 months, the food you bought Never true 03/30/2018 just didn't last and you didn't have mo yanet to get more. Sex Assigned at Date Recorded Not on file Industry Job Start Date Occupation Not on file Not on file Not on file Travel End Travel History Travel Start No recent travel history available. Date Recorded COVID-19 Exposure Response 04/16/2020 8:50 PM CDT In the last month, have you been in contact with No / Unsure someone who was confirmed or suspected to have Coronavirus / COVID-19? Last Filed Vital Signs Reading Time Taken Comments Vital Sign 164/90 09/29/2019 11:26 AM [employer] manual left arm Blood Pressure 106 09/29/2019 10:27 AM [employer] Pulse 36.6 C (97.9 F) 09/29/2019 10:27 AM [employer] Temperature 18 09/29/2019 10:27 AM [employer] Respiratory Rate 98% 09/22/2019 10:56 AM [employer] Oxygen Saturation - - Inhaled Oxygen Concentration 107.5 kg (237 lb) 09/29/2019 10:27 AM [employer] Weight 167.6 cm (5' 6") 09/29/2019 10:27 AM [employer] Height 38.25 09/29/2019 10:27 AM [employer] Body Mass Index Plan of Treatment Care Team Description Date Type Specialty Mark Stoll III, MD [id number] [place] [address] [phone] 06/07/2020 Lab Appointment Lab Mark Stoll III, MD [id number] [place] [address] [phone] 06/12/2020 Office Visit Family Practice Health Maintenance Due Date Last Done Comments DM Foot Exam (Yearly) 08/27/2019 08/27/2018, 11/17/2017, 2017 CORONARY ARTERY DISEASE 09/29/2020 09/29/2019, AGE 18 AND UP 02/07/2019, 06/14/2018, Additional history exists DM HGBA1C (Yearly) 09/29/2020 09/29/2019, 02/07/2019, 10/05/2018, Additional history exists Colorectal Cancer Scrn 10/06/2020 10/06/2019, Annual (FIT/FOBT) Age 52 08/28/2017 to 77 DM Retinal Exam (Yearly) 10/07/2020 10/07/2019, 10/07/2019, 05/11/2018, Additional history exists Goals Goal Patient Associated Recent Progress Patient-Stat Aut hor Goal Type Problems ed? Decrease juice intake Diet No Trimino, YAIMA Suggs Have 3 meals a day Diet No Trimino, YAIMA Suggs Eat more non starchy Self No Trimino, vegetables management YAIMA Suggs Procedures Comments Procedure Name Priority Date/Time Associated Diag nosis DRAIN/INJECT SM JNT/BURSA Routine 03/27/2020 Trig bernadette finger, left ring 12:20 PM CDT finger IR U/S GUIDED NEEDLE Routine 03/27/2020 Trigger f harish, left ring BIOPSY 12:20 PM CDT finger MAGNESIUM Routine 03/23/2020 Hypokalemia 1:14 PM CDT ELECTROLYTES Routine 03/23/2020 Hypokalemia 1:14 PM CDT XRAY CHEST 2 VIEWS Routine 10/07/2019 Chest pain, unspecified 9:03 AM [employer] type OPHTHALMOLOGY RETINAL Routine 10/07/2019 Type 2 d iabetes mellitus SCAN 8:35 AM [employer] without complicatio n, without long-term current use of insulin OPHTHALMOLOGY RETINAL Routine 10/07/2019 Type 2 d iabetes with SCAN 2:33 AM [employer] complication FECAL OCCULT BLOOD Routine 10/06/2019 Preventati e health care 5:46 PM [employer] NEEDLE EMG, 2 EXTREMITIES Routine 09/29/2019 Hand numbness 11:59 AM [employer] MICROALBUMIN / CREATININE Routine 09/29/2019 Type 2 diabetes with URINE RATIO 11:14 AM [employer] complication HEMOGLOBIN A1C Routine 09/29/2019 Type 2 diabetes with 11:14 AM [employer] complication HIV AG/AB COMBO ROUTINE Routine 09/29/2019 Type 2 diabetes with SCREENING 11:14 AM [employer] complication CBC Routine 09/29/2019 Type 2 diabetes with 11:13 AM [employer] complication VIT D, 25-HYDROXY Routine 09/29/2019 Type 2 diabe raiza with 11:13 AM [employer] complication CALCIUM Routine 09/29/2019 Type 2 diabetes with 11:13 AM [employer] complication HEPATITIS PANEL Routine 09/29/2019 Type 2 diabete s with 11:13 AM [employer] complication LIVER PROFILE Routine 09/29/2019 Type 2 diabetes with 11:13 AM [employer] complication UREA NITROGEN/CREATININE Routine 09/29/2019 Type 2 diabetes with 11:13 AM [employer] complication LIPID PROFILE Routine 09/29/2019 Type 2 diabetes with 11:13 AM [employer] complication GLUCOSE Routine 09/29/2019 Type 2 diabetes with 11:13 AM [employer] complication CBC/DIFF Routine 09/29/2019 Type 2 diabetes with 11:13 AM [employer] complication ELECTROLYTES Routine 09/29/2019 Type 2 diabetes with 11:13 AM [employer] complication ECHG EKG PROC 12 LEAD Routine 09/29/2019 Chest pa in, unspecified EKG; TRACING ONLY 10:57 AM [employer] type ECHG EKG PROC 12 LEAD Routine 09/22/2019 Headache , unspecified EKG; TRACING ONLY 11:00 AM [employer] headache type GLUCOSE POC Routine 09/22/2019 10:59 AM [employer] after 04/24/2019 Results * IR U/S GUIDED NEEDLE BIOPSY (03/27/2020 12:20 PM CDT) Specimen Impressions Performed At IMPRESSION: Technically successful ultrasound-guided therapeutic SMS injection of left ring trigger finger. Dictated By: Edgar Diego MD, 03/27/2020 2:02 PM I have reviewed the study and agree wit h the findings in this report. Signed By: Jessica Edouard MD, 03/27/2020 5:09 PM Narrative Performed At EXAM: ULTRASOUND-GUIDED THERAPEUTIC LEFT RING FINGER INJECTION SMS DATE: 03/27/2020 1:48 PM INDICATION: Trigger finger, left ring f harish, Trigger finger, left ring finger COMPARISON: Hand radiographs of 018 PRE-PROCEDURE: Pertinent past medical history and all allergies were reviewed. Consent: An informed consent was obtain ed from patient prior to the procedure. Administration Vice President: None. Preferred language i s Emirati. Site and side were marked. Appropriate time out procedures were performed. Preliminary ultrasound demonstrates foc al thickening of the A1 henrique over the left ring finger metacarpophal angeal joint. PROCEDURE: The skin was prepped and draped in the usual fashion under aseptic precautions. 1% lidocaine was utilized for local anesthesia. Under direct ultrasound guidance a 25 g auge needle was advanced to surrounding the A1 henrique. Infiltration of lidocaine 1% was perfor med to produce a cleavage plane. Kenalog 40mg (1mL) and 3mL of 0.25% bup ivacaine were subsequently injected the left ring trigger finger. Post procedure check imaging demonstrat ed no tendon infiltration. No immediate complications. Preprocedure pain score: 5/10 Postprocedure pain score: 3/10 Dr. Jessica Edouard, attending, was pres ent for the procedure. Procedure Note Interface, Rad/Mammog In - 03/27/2020 5:14 PM CDT EXAM: ULTRASOUND-GUIDED THERAPEUTIC LEFT RING FINGER INJECTION DATE: 03/27/2020 1:48 PM INDICATION: Trigger finger, left ring finger, Trigger finger, left ring finger COMPARISON: Hand radiographs of 08/04/2018 PRE-PROCEDURE: Pertinent past medical history and all allergies were reviewed. Consent: An informed consent was obtained from patient prior to the procedure. Administration Vice President: None. Preferred language is Emirati. Site and side were marked. Appropriate time out procedures were performed. Preliminary ultrasound demonstrates focal thickening of the A1 henrique over the left ring finger metacarpophalangeal joint. PROCEDURE: The skin was prepped and draped in the usual fashion under aseptic precautions. 1% lidocaine was utilized for local anesthesia. Under direct ultrasound guidance a 25 gauge needle was advanced to surrounding the A1 henrique. Infiltration of lidocaine 1% was performed to produce a cleavage plane. Kenalog 40mg (1mL) and 3mL of 0.25% bupivacaine were subsequently injected the left ring trigger finger. Post procedure check imaging demonstrated no tendon infiltration. No immediate complications. Preprocedure pain score: 5/10 Postprocedure pain score: 3/10 Dr. Jessica Edouard, attending, was present for the procedure. IMPRESSION IMPRESSION: Technically successful ultrasound-guided therapeutic injection of left ring trigger finger. Dictated By: Edgar Diego MD, 03/27/2020 2:02 PM I have reviewed the study and agree with the findings in this report. Signed By: Jessica Edouard MD, 03/27/2020 5:09 PM Performing Organization Address City/State/Zipcode Ph one Number SMS * DRAIN/INJECT SM JNT/BURSA (03/27/2020 12:20 PM CDT) Specimen Impressions Performed At IMPRESSION: Technically successful ultrasound-guided therapeutic SMS injection of left ring trigger finger. Dictated By: Edgar Diego MD, 03/27/2020 2:02 PM I have reviewed the study and agree wit h the findings in this report. Signed By: Jessica Edouard MD, 03/27/2020 5:09 PM Narrative Performed At EXAM: ULTRASOUND-GUIDED THERAPEUTIC LEFT RING FINGER INJECTION SMS DATE: 03/27/2020 1:48 PM INDICATION: Trigger finger, left ring f harish, Trigger finger, left ring finger COMPARISON: Hand radiographs of 018 PRE-PROCEDURE: Pertinent past medical history and all allergies were reviewed. Consent: An informed consent was obtain ed from patient prior to the procedure. Administration Vice President: None. Preferred language i s Emir[place]. Site and side were marked. Appropriate time out procedures were performed. Preliminary ultrasound demonstrates foc al thickening of the A1 henrique over the left ring finger metacarpophal angeal joint. PROCEDURE: The skin was prepped and draped in the usual fashion under aseptic precautions. 1% lidocaine was utilized for local anesthesia. Under direct ultrasound guidance a 25 g auge needle was advanced to surrounding the A1 henrique. Infiltration of lidocaine 1% was perfor med to produce a cleavage plane. Kenalog 40mg (1mL) and 3mL of 0.25% bup ivacaine were subsequently injected the left ring trigger finger. Post procedure check imaging demonstrat ed no tendon infiltration. No immediate complications. Preprocedure pain score: 5/10 Postprocedure pain score: 3/10 Dr. Jessica Edouard, attending, was pres ent for the procedure. Procedure Note Interface, Rad/Mammog In - 03/27/2020 5:14 PM CDT EXAM: ULTRASOUND-GUIDED THERAPEUTIC LEFT RING FINGER INJECTION DATE: 03/27/2020 1:48 PM INDICATION: Trigger finger, left ring finger, Trigger finger, left ring finger COMPARISON: Hand radiographs of 08/04/2018 PRE-PROCEDURE: Pertinent past medical history and all allergies were reviewed. Consent: An informed consent was obtained from patient prior to the procedure. Administration Vice President: None. Preferred language is Emirati. Site and side were marked. Appropriate time out procedures were performed. Preliminary ultrasound demonstrates focal thickening of the A1 henrique over the left ring finger metacarpophalangeal joint. PROCEDURE: The skin was prepped and draped in the usual fashion under aseptic precautions. 1% lidocaine was utilized for local anesthesia. Under direct ultrasound guidance a 25 gauge needle was advanced to surrounding the A1 henrique. Infiltration of lidocaine 1% was performed to produce a cleavage plane. Kenalog 40mg (1mL) and 3mL of 0.25% bupivacaine were subsequently injected the left ring trigger finger. Post procedure check imaging demonstrated no tendon infiltration. No immediate complications. Preprocedure pain score: 5/10 Postprocedure pain score: 3/10 Dr. Jessica Edouard, attending, was present for the procedure. IMPRESSION IMPRESSION: Technically successful ultrasound-guided therapeutic injection of left ring trigger finger. Dictated By: Edgar Diego MD, 03/27/2020 2:02 PM I have reviewed the study and agree with the findings in this report. Signed By: Jessica Edouard MD, 03/27/2020 5:09 PM Performing Organization Address City/[facility] Ph one Number SMS * Magnesium (03/23/2020 1:14 PM CDT) Magnesium 1.8 (L) 1.9 - 2.7 mg/dL [facility] Specimen Blood Performing Organization Address [facility] Ph one Number [facility] [address] [place] [address] * Electrolytes (03/23/2020 1:14 PM CDT) Only the most recent of 2 results within the time period is included. Sodium 138 136 - 145 mmol/L [facility] Potassium 4.0 3.5 - 5.1 mmol/L [facility] Chloride 97 (L) 98 - 107 mmol/L [facility] CO2 30 21 - 31 mmol/L [facility] Anion Gap 11 5 - 16 mmol/L [facility] Specimen Blood Performing Organization Address City/State/Zipcode Ph one Number [facility] [address] [place] [address] [phone] * XRAY CHEST 2 VIEWS (10/07/2019 9:03 AM [employer]) Specimen Impressions Performed At IMPRESSION: SMS No acute thoracic abnormality. No signi ficant change compared to the previous chest x-ray 12/02/2017. If the report is "FINALIZED" it indicat es that the attending/staff radiologist has reviewed the images and agrees with the resident's interpretation. Dictated By: Rashi Sosa MD, 020 9:17 AM I have reviewed the study and agree wit h the findings in this report. Signed By: Rashi Leahy MD, 10/07/2019 2:38 PM Narrative Performed At EXAMINATION: XRAY CHEST 2 VIEWS, Frontal and latera l SMS INDICATION: sharp chest pain COMPARISON: Chest x-ray 03/31/2018; [facility] CT, 12/14/2017 FINDINGS: TUBES/LINES: None LUNGS AND PLEURA: No consolidations o r edema. No effusions or pneumothorax. HEART/MEDIASTINUM: Stable retrocardia c opacity is consistent with tortuous aorta and hiatus hernia as see n on previous CT. MUSCULOSKELETAL: No acute findings. UPPER ABDOMEN: No acute findings. SOFT TISSUES: No acute findings. Procedure Note Interface, Rad/Mammog In - 10/07/2019 2:43 PM [employer] EXAMINATION: XRAY CHEST 2 VIEWS, Frontal and lateral INDICATION: sharp chest pain COMPARISON: Chest x-ray 03/31/2018; chest CT, 12/14/2017 FINDINGS: TUBES/LINES: None LUNGS AND PLEURA: No consolidations or edema. No effusions or pneumothorax. HEART/MEDIASTINUM: Stable retrocardiac opacity is consistent with tortuous aorta and hiatus hernia as seen on previous CT. MUSCULOSKELETAL: No acute findings. UPPER ABDOMEN: No acute findings. SOFT TISSUES: No acute findings. IMPRESSION IMPRESSION: No acute thoracic abnormality. No significant change compared to the previous chest x-ray 12/02/2017. If the report is "FINALIZED" it indicates that the attending/staff radiologist has reviewed the images and agrees with the resident's interpretation. Dictated By: Rashi Sosa MD, 10/07/2019 9:17 AM I have reviewed the study and agree with the findings in this report. Signed By: Rashi Leahy MD, 10/07/2019 2:38 PM Performing Organization Address [facility] one Number SMS * OPHTHALMOLOGY RETINAL SCAN (10/07/2019 8:35 AM [employer]) Only the most recent of 2 results within the time period is included. RETINAL NORMAL IRIS SCAN-FINAL RESULT Right Diabetic None IRIS Retinopathy Right Macular None IRIS Edema Right Other None IRIS Suspected Conditions Right Image Gradable Image IRIS Quality Left Diabetic None IRIS Retinopathy Left Macular None IRIS Edema Left Other None IRIS Suspected Conditions Left Image Gradable Image IRIS Quality Specimen Narrative Performed At Retinal Study Result for jasen VERA 54 y/o, M (: [birth year] ) presented [facility] on 10-07-2019 for a retinal imaging study of the left and r ight eyes. Based on the findings of the study, the following is recommended for LOUISE LAND Normal Scan: Please advise the patient to return for another scan in 1 year. Interpreting Provider's Comments: No comments provided Right eye findings: Normal Result. Ne gative for Diabetic Retinopathy. Left eye findings: Normal Result. Neg ative for Diabetic Retinopathy. This result was electronically signed Paul Briceno MD, , Taxonomy: [id number] on 10-07-2019 03:0 5:02 [facility] time. NOTE: Any pathology noted on this kate betic retinal evaluation should be confirmed by an appropriate ophthalmic examination. Performing Organization Address [facility] one Number IRIS * Fecal Occult Blood (10/06/2019 5:46 PM [employer]OR) Occult Blood Negative Negative [facility] Specimen Stool - Feces Performing Organization Address [facility] Ph one Number [facility] [place] [address] [facility] * HIV-1/HIV-2 Routine Screening (09/29/2019 11:14 AM [employer]PER[employer]OR) Pathologist [facility] HIV Ag/Ab Combo Negative Negative [facility] Specimen Blood Performing Organization Address [facility] one Number [facility] [address] [place] [address] * Microalbumin / Creatinine Urine Ratio (09/29/2019 11:14 AM [employer]PER[employer]) [facility] Microalbumin, 2.1 <30.0 mg/dL [facility] Creatinine, 192 20 - 370 mg/dL [facility] Urine [facility] Urine 10.9 0.0 - 30.0 mg/g [facility] Microalbumin [facility] Specimen Urine - Voided, urine Performing Organization Address [facility] one Number [facility] [address] [place] [address] * Hemoglobin A1C (09/29/2019 11:14 AM [employer]PER[employer]) [facility] Hemoglobin A1c 6.3 (H) 4.3 - 6.1 % [facility] Estimated 134 (H) 70 - 110 mg/dL [facility] Average Glucose [facility] Specimen Blood Performing Organization Address [facility] one Number [facility] [address] [place] [address] [phone] * CBC/Diff (09/29/2019 11:13 AM [employer]PER[employer]) [facility] WBC 10.5 4.5 - 12.0 K/uL [facility] RBC 5.93 4.60 - 6.20 M/uL [facility] Hemoglobin 13.3 (L) 14.0 - 18.0 g/dL [facility] Hematocrit 45.0 40.0 - 54.0 % [facility] MCV 75.9 (L) 82.0 - 92.0 fL [facility] MCH 22.4 (L) 27.0 - 31.0 pg [facility] MCHC 29.6 (L) 32.0 - 36.0 g/dL [facility] RDW 48.6 (H) 35.1 - 43.9 fL [facility] Platelet 315 150 - 400 K/uL [facility] Mean Platelet 10.7 9.4 - 12.4 fL [facility] Volume [facility] Percent NRBC 0.0 % [facility] Neutrophil 66.4 34.0 - 67.9 % [facility] Lymphs 28.1 21.8 - 50.0 % [facility] Monocytes 4.6 (L) 5.3 - 12.0 % [facility] Eos 0.6 (L) 0.8 - 5.0 % [facility] Basos 0.2 0.2 - 1.2 % [facility] Immature 0.1 0.0 - 0.5 % [facility] Granulocytes [facility] Neutrophils 6.96 (H) 1.78 - 5.36 K/uL [facility] (Absolute) [facility] Lymphs 2.95 1.32 - 3.57 K/uL [facility] (Absolute) [facility] Monocytes(Absol 0.48 0.30 - 0.82 K/uL [facility] alatna) LAB[facility]ORY Eos (Absolute) 0.06 0.04 - 0.54 K/uL [facility] Baso (Absolute) 0.02 0.01 - 0.08 K/uL [facility] Immature Grans 0.01 0.00 - 0.03 K/uL [facility] (Abs) [facility] Absolute NRBC 0.00 K/uL [facility] Specimen Blood Performing Organization Address City/[facility] Ph one Number [facility] [address] [place] [address] * Vitamin D, 25-Hydroxycalciferol (09/29/2019 11:13 AM [employer]) Vit D, 26.6 (L) 30.0 - 100.0 ng/mL [facility] 25-Hydroxy [facility] Vitamin D Insufficient (A) Sufficient [facility] Interpretation Comment: [facility] Sufficient: >30.0 Insufficient: 20.0 - 29.9 Deficient: <20.0 Specimen Blood Performing Organization Address [facility] Ph one Number [facility] [address] [place] [address] * Liver Profile (09/29/2019 11:13 AM [employer]PER[employer]OR) Total Protein 7.2 6.0 - 8.3 g/dL [facility] Bilirubin, 0.3 0.2 - 1.2 mg/dL [facility] Total [facility] Alkaline 78 34 - 104 U/L [facility] Phosphatase [facility] AST 12 (L) 13 - 39 U/L [facility] Direct 0.1 0.0 - 0.2 mg/dL [facility] Bilirubin [facility] ALT 12 7 - 52 U/L [facility] Albumin 4.0 (L) 4.2 - 5.5 g/dL [facility] Specimen Blood Performing Organization Address [facility] one Number [facility] [address] [place] [address] * Lipid Profile (09/29/2019 11:13 AM [employer]PER[employer]OR) Pathologist [facility] Cholesterol 179.0 <=200.0 mg/dL [facility] Triglyceride 137 <150 mg/dL [facility] HDL 52.0 See Reference Range [facility] Narrative. mg/dL [facility] LDL 100 (H) <100 mg/dL [facility] Comment: [facility] Optimal: < 100.0 mg/dL Near Optimal: 120-129 mg/dL Borderline: 130-159 mg/dL High: 160-189 mg/dL Very High: >=190 mg/dL Patient Yes [facility] Fasting? LAB[facility] Specimen Blood Performing Organization Address [facility] one Number [facility] [address] [place] [address] [phone] * Hepatitis Panel (09/29/2019 11:13 AM [employer]PER[employer]OR) [facility] Hepatitis C Negative Negative [facility] Virus (HCV) [facility] Antibody Hep B Surface Negative Negative [facility] Ag [facility] Hep A Vir Ab Negative Negative [facility] IgM [facility] Hep B Core Ab Negative Negative [facility] IgM [facility] Specimen Blood Performing Organization Address [facility] one Number [facility] [address] [place], [place] [phone] * Glucose (09/29/2019 11:13 AM [employer]PER[employer]OR) [facility] Glucose 111 (H) 70 - 110 mg/dL [facility] Specimen Blood Performing Organization Address [facility] one Number [facility] [address] [place], [place] [id number] * Calcium (09/29/2019 11:13 AM [employer]PER[employer]OR) [facility] Calcium 9.7 8.6 - 10.3 mg/dL [facility] Specimen Blood Performing Organization Address [facility] one Number [facility] [address] [place] [address] * Urea Nitrogen/Creatinine (09/29/2019 11:13 AM [employer]PER[employer]OR) Urea Nitrogen 7.0 7.0 - 25.0 mg/dL [facility] Creatinine 0.8 0.7 - 1.3 mg/dL [facility] eGFR If Africn >90 >=90 mL/min/1.73 m2 [facility] Am [facility] Specimen Blood Performing Organization Address [facility] one Number [facility] [address] [place] [address] * 12 LEAD EKG (09/29/2019 10:57 AM [employer] SUPERVISOR) 12 LEAD EKG FOR [facility] Test Date: 2019-09-29 Pat Name: LOUISE LAND Department: 4621 Room: Gender: M [employer]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1965 Requested By: MARK Sparks Order Number: [id number] Reading MD: Pablo Carney Measurements Intervals [place] Rate: 71 P: 37 LA: 188 QRS: 57 QRSD: 78 T: 132 QT: 364 QTc: 398 Interpretive Statements SINUS RHYTHM NONSPECIFIC T-WAVE ABNORMALITY Electronically Signed On 09-29-2019 11:25:36 [employer] by Pablo Carney Specimen Performing Organization Address [facility] one Number [facility] * 12 LEAD EKG (09/22/2019 11:00 AM [employer] SUPER[employer]OR) 12 LEAD EKG FOR [facility] Test Date: 2019-09-22 Pat Name: LOUISE LAND Department: 4522 Room: Gender: M [employer] 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: HUI : 1965 Requested By: CHACE Lance Order Number: [id number] Reading MD: Pablo Carney Measurements Intervals [place] Rate: 79 P: 44 LA: 207 QRS: 37 QRSD: 77 T: 116 QT: 368 QTc: 423 Interpretive Statements SINUS RHYTHM POSSIBLE ANTERIOR MYOCARDIAL INFARCTION, OF INDETERMINATE AGE MODERATE T-WAVE ABNORMALITY, CONSIDER LATERAL ISCHEMIA Electronically Signed On 09-22-2019 11:36:52 [employer] by Pablo Carney Specimen Performing Organization Address City/State/Zipcode Ph one Number SMS * POCT GLUCOSE POC docked device (09/22/2019 10:59 AM [employer]PER[employer]OR) Glucose POC 134 (H) 74 - 106 mg/dL [facility] Specimen Blood Performing Organization Address City/State/Zipcode Ph one Number [facility] [address] [place] [address] after 04/24/2019 Insurance Type Payer Benefit Subscriber ID Effective Phone Address Plan / Dates Group [facility] xxxxxx 2019- [address] [employer] FAMILY /[id number] PLANNING [place], [place] [phone] [employer]CIAL xxxxxx 2019-3 [address] [employer] /12/2020 [place] [address] 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
[2020-04-24 06:59] LABS: CLARITY,URINE CLEAR (CLEAR); COLOR,URINE YELLOW (YELLOW)
[2020-04-24 07:00] LABS: KETONES,URINE NEGATIVE (NEGATIVE); LEUKOCYTE ESTERASE ,URINE NEGATIVE (NEGATIVE); NITRITE,URINE NEGATIVE (NEGATIVE); PROTEIN,URINE DIPSTICK NEGATIVE (NEGATIVE)
[2020-04-24 07:01] LABS: AMPHETAMINES SCREEN,URINE NEGATIVE (NEGATIVE); BENZODIAZEPINES SCREEN,URINE POSITIVE (NEGATIVE); PHENCYCLIDINE SCREEN,URINE NEGATIVE (NEGATIVE)
[2020-04-24 07:02] LABS: BILIRUBIN,URINE NEGATIVE (NEGATIVE); RBC,URINE 0-5 /HPF (0-5); URINE UROBILINOGEN 0.2 mg/dL (0.2 - 1); WBC,URINE (MAN) 0-5 /HPF (0-5)
[2020-04-24 07:03] LABS: BACTERIA,URINE RARE /HPF; EPITHELIAL CELLS,URINE FEW /LPF
--- NOTE | 2020-04-24 07:32 | Diagnostic Imaging Report ---
EXAM: CT Abdomen and Pelvis WITHOUT contrast INDICATION: ^RIGHT FLANK PAIN ^[id number] ^0650 ^Y COMPARISON: None. TECHNIQUE: Abdomen and pelvis were scanned utilizing a multidetector helical scanner from the lung base to the pubic symphysis without administration of IV contrast. Absence of intravenous contrast decreases sensitivity for detection of focal lesions and vascular pathology. Coronal and sagittal reformations were obtained. Routine protocol was performed. IV CONTRAST: None ORAL CONTRAST: Water COMPLICATIONS: None RADIATION DOSE: Total DLP: 755.74 mGy*cm Estimated effective dose: (DLP x 0.015 x size factor) mSv CTDIvol has been reviewed. It is below the limits set by the Radiation Protocol Committee (RPC). FINDINGS: LINES and TUBES: None. LOWER THORAX: Mild left basilar linear atelectasis/scarring. HEPATOBILIARY: Unenhanced liver is unremarkable. No biliary ductal dilation. GALLBLADDER: No radio-opaque stones or sludge. No wall thickening. SPLEEN: No splenomegaly. PANCREAS: No focal masses or ductal dilatation. ADRENALS: No adrenal nodules KIDNEYS/URETERS: No hydronephrosis. Limited for evaluation of renal parenchyma without intravenous contrast. No stones. GI TRACT: No abnormal distention, wall thickening, or evidence of bowel obstruction. Appendix is normal. Moderate size hiatal hernia. PELVIC ORGANS/BLADDER: Bladder is collapsed. LYMPH NODES: No lymphadenopathy. VESSELS: Unremarkable. PERITONEUM / RETROPERITONEUM: No free air or fluid. BONES: Unremarkable. SOFT TISSUES: Unremarkable. IMPRESSION: 1. No nephrolithiasis or evidence of obstructive urolithiasis. 2. Moderate size hiatal hernia. Signed by: Dr. Frandy Lea MD on 04/24/2020 7:28 AM
== END 2020-04-24 08:19 | disposition home or self-care (01) ==
LOC: ER 05:46
DX: M54.5 Low back pain (principal); M94.0 Chondrocostal junction syndrome [Tietze]; I10 Essential (primary) hypertension; K21.9 Gastro-esophageal reflux disease without esophagitis; G89.29 Other chronic pain
CPT/HCPCS: 74176; 80307; 81001; 99283; J2360